=== PATIENT | female | born 1965 | race Caucasian/White ===

== ENCOUNTER 2017-05-26 08:01 | Observation (INO) | payer OTHER ==
[2017-05-26] MEDS ORDERED: ASPIRIN 81 MG PO STA (08:09)
[2017-05-26 08:22] LABS: Basophils % (A) 0 %; Eosinophils # (A) 0.1 k/uL (0-0.7); Eosinophils % (A) 1 %; HCT 39.7 % (34.0-46.0); Lymphocytes # (A) 1.1 k/uL (1.0-4.8); Lymphocytes % (A) 13 %; MCH 31.3 pg (25.0-35.0); MCHC 32.8 g/dL (31.0-37.0); MCV 95.5 fL (80.0-100.0); Mean Platelet Volume 7.3; Monocytes # (A) 0.2 k/uL (0-1.0); Monocytes % (A) 3 %; Neutrophils # (A) 6.4 k/uL (1.3-7.7); Neutrophils % (A) 82 %; Platelet Count 278 k/uL (150-450); RBC 4.16 m/uL (3.80-5.40); RDW 13.1 % (11.5-15.5); WBC 7.9 k/uL (3.8-10.6)
--- NOTE | 2017-05-26 08:24 | ED ---
Chest Pain HPI - General Chief Complaint: Chest Pain Stated Complaint: Syncope Time Seen by Provider: 05/26/17 08:01 Source: patient, EMS, RN notes reviewed Mode of arrival: EMS Limitations: no limitations - History of Present Illness Initial Comments: This is a 52-year-old female with a history of asthma who is a smoker who states she was at work this morning when she felt lightheaded dizzy and she passed out. A coworker noticed that she is going to pass out and help her to the floor. There is no trauma. She was out for a short period of time. She states she's been having intermittent heartburn discomfort this morning. She did not eat breakfast which is her normal. She does relate however that throughout the night she woke up multiple times and had multiple episodes of what she felt like was heartburn though this is worse than heartburn she's had in the past. He currently is pain-free though she did have a recent episode upon arrival. She did have some nausea vomiting she also had headache. Along with the heartburn she was having some difficulty breathing. She was brought in by EMS today EKG done by EMS showed no acute changes her blood glucose level was somewhat elevated. She didn't receive any aspirin or nitroglycerin. MD Complaint: chest pain, other - Related Data Home Medications Medication Instructions Recorded Confirmed No Known Home Medications [No 05/26/17 05/26/17 Known Home Medications] Allergies Allergy/AdvReac Type Severity Reaction Status Date / Time bee venom protein (honey bee) Allergy Anaphylaxis Verified 05/26/17 10:20 Review of Systems ROS Statement: Those systems with pertinent positive or pertinent negative responses have been documented in the HPI. ROS Other: All systems not noted in ROS Statement are negative. EKG Findings - EKG Results: EKG: interpreted by LUDIVINA, sinus rhythm (Normal sinus rhythm rate of 72. Interval 154, QRS duration 96 QT since QTC of 460/[address]-T wave changes seen.) Past Medical History Past Medical History: Syncope Additional Past Medical History / Comment(s): fibromyalgia, chronic pain, neck spurs, low back problems History of Any Multi-Drug Resistant Organisms: MRSA Date of last positivie culture/infection: 2010 MDRO Source:: groin Additional Past Surgical History / Comment(s): bowel prolapse repair, partial hysterectomy, tubal , Past Psychological History: No Psychological Hx Reported Smoking Status: Current every day smoker Past Alcohol Use History: Occasional Past Drug Use History: None Reported General Exam - General Exam Comments Initial Comments: This is a well-developed well-nourished awake alert oriented 3 female Limitations: no limitations General appearance: alert, anxious Head exam: Present: atraumatic, normocephalic, normal inspection Eye exam: Present: normal appearance, PERRL, EOMI. Absent: scleral icterus, conjunctival injection, periorbital swelling ENT exam: Present: normal exam, mucous membranes moist Neck exam: Present: normal inspection. Absent: tenderness, meningismus, lymphadenopathy Respiratory exam: Present: normal lung sounds bilaterally. Absent: respiratory distress, wheezes, rales, rhonchi, stridor Cardiovascular Exam: Present: regular rate, normal rhythm, normal heart sounds. Absent: systolic murmur, diastolic murmur, rubs, gallop, clicks GI/Abdominal exam: Present: soft, normal bowel sounds. Absent: distended, tenderness, guarding, rebound, rigid Extremities exam: Present: normal inspection, full ROM, normal capillary refill. Absent: tenderness, pedal edema, joint swelling, calf tenderness Back exam: Present: normal inspection Neurological exam: Present: alert, oriented X3, CN II-XII intact Psychiatric exam: Present: normal affect, normal mood Skin exam: Present: warm, dry, intact, normal color. Absent: rash Course Vital Signs 05/26/17 05/26/17 05/26/17 08:08 09:14 10:33 Temperature 98.1 F Pulse Rate 72 68 67 Respiratory 18 18 16 Rate Blood Pressure 155/80 147/75 149/76 O2 Sat by Pulse 99 99 98 Oximetry Chest Pain MDM - MDM Reevaluation patient reveals no further chest pain. X-rays are unremarkable. A long discussion with the patient the presentation is suspicious for angina. Patient be admitted I did discuss case with Dr. Flores. Disposition Clinical Impression: Chest pain, Unstable angina pectoris Disposition: ADMITTED IP TO THIS HOSP Condition: Stable Referrals: Jamie Pendleton MD [Primary Care Provider] - 1-2 days
[2017-05-26 08:35] LABS: D-Dimer 0.39 mg/L FEU (<0.60); Partial Thromboplastin Time 22.8 sec (22.0-30.0); Prothrombin Time 9.6 sec (9.0-12.0)
[2017-05-26 08:38] LABS: ALT 26 U/L (9-52); AST 22 U/L (14-36); Alkaline Phosphatase 81 U/L (38-126); Amylase 80 U/L (30-110); Anion Gap 9 mmol/L; Blood Urea Nitrogen 20 mg/dL (7-17); Calcium 9.3 mg/dL (8.4-10.2); Carbon Dioxide 22 mmol/L (22-30); Chloride 110 mmol/L (98-107); Glucose 106 mg/dL (74-99); Lipase 70 U/L (23-300); Magnesium 1.7 mg/dL (1.6-2.3); Sodium 141 mmol/L (137-145); Total Bilirubin 0.3 mg/dL (0.2-1.3); Total Protein 6.9 g/dL (6.3-8.2)
[2017-05-26 08:40] LABS: Potassium 3.9 mmol/L (3.5-5.1)
--- NOTE | 2017-05-26 08:41 | XR ---
EXAMINATION TYPE: XR chest 2V DATE OF EXAM: 05/26/2017 HISTORY: Weakness and shortness of breath. REFERENCE: NONE. FINDINGS: The lungs are clear. Pleural space are clear. The heart is not enlarged. IMPRESSION: NO ACTIVE INTRATHORACIC DISEASE.
[2017-05-26 08:46] LABS: Creatine Kinase 77 U/L (30-135)
[2017-05-26 08:59] LABS: Creatine Kinase MB 0.7 ng/mL (0.0-2.4); Troponin I <0.012 ng/mL (0.000-0.034)
[2017-05-26] MEDS ORDERED: NITROGLYCERIN SL TABS 0.4 MG TAB SUBLINGUAL PRN (10:50)
[2017-05-26] MEDS ORDERED: HEPARIN SODIUM,PORCINE 5,000 UNIT/ML 1 ML VIAL IV ONE (10:50)
--- NOTE | 2017-05-26 10:54 | ED ---
Medical Decision Making - Medical Decision Making We did discuss the risks of smoking and the benefits of quitting. Patient smokes about half a pack cigarettes per day. She was offered a nicotine patch she does not want one at this time she will request 1F she feels as if she is going through 15 withdrawals. Told conversation lasting 3.1 minutes - Lab Data Result diagrams: 05/26/17 08:12 05/26/17 08:12 Lab Results 05/26/17 05/26/17 05/26/17 Range/Units 08:12 08:12 08:12 WBC 7.9 (3.8-10.6) k/uL RBC 4.16 (3.80-5.40) m/uL Hgb 13.0 (11.4-16.0) gm/dL Hct 39.7 (34.0-46.0) % MCV 95.5 (80.0-100.0) fL MCH 31.3 (25.0-35.0) pg MCHC 32.8 (31.0-37.0) g/dL RDW 13.1 (11.5-15.5) % Plt Count 278 (150-450) k/uL Neutrophils % 82 % Lymphocytes % 13 % Monocytes % 3 % Eosinophils % 1 % Basophils % 0 % Neutrophils # 6.4 (1.3-7.7) k/uL Lymphocytes # 1.1 (1.0-4.8) k/uL Monocytes # 0.2 (0-1.0) k/uL Eosinophils # 0.1 (0-0.7) k/uL Basophils # 0.0 (0-0.2) k/uL PT (9.0-12.0) sec INR (<1.2) APTT (22.0-30.0) sec D-Dimer (<0.60) mg/L FEU Sodium 141 (137-145) mmol/L Potassium 3.9 (3.5-5.1) mmol/L Chloride 110 H (98-107) mmol/L Carbon Dioxide 22 (22-30) mmol/L Anion Gap 9 mmol/L BUN 20 H (7-17) mg/dL Creatinine 0.75 (0.52-1.04) mg/dL Est GFR (MDRD) Af Amer >60 (>60 ml/min/1.73 sqM) Est GFR (MDRD) Non-Af >60 (>60 ml/min/1.73 sqM) Glucose 106 H (74-99) mg/dL Calcium 9.3 (8.4-10.2) mg/dL Magnesium 1.7 (1.6-2.3) mg/dL Total Bilirubin 0.3 (0.2-1.3) mg/dL AST 22 (14-36) U/L ALT 26 (9-52) U/L Alkaline Phosphatase 81 (38-126) U/L Total Creatine Kinase 77 (30-135) U/L CK-MB (CK-2) 0.7 (0.0-2.4) ng/mL CK-MB (CK-2) Rel Index 0.9 Troponin I <0.012 (0.000-0.034) ng/mL NT-Pro-B Natriuret Pep pg/mL Total Protein 6.9 (6.3-8.2) g/dL Albumin 4.0 (3.5-5.0) g/dL Amylase 80 (30-110) U/L Lipase 70 (23-300) U/L 05/26/17 05/26/17 Range/Units 08:12 08:12 WBC (3.8-10.6) k/uL RBC (3.80-5.40) m/uL Hgb (11.4-16.0) gm/dL Hct (34.0-46.0) % MCV (80.0-100.0) fL MCH (25.0-35.0) pg MCHC (31.0-37.0) g/dL RDW (11.5-15.5) % Plt Count (150-450) k/uL Neutrophils % % Lymphocytes % % Monocytes % % Eosinophils % % Basophils % % Neutrophils # (1.3-7.7) k/uL Lymphocytes # (1.0-4.8) k/uL Monocytes # (0-1.0) k/uL Eosinophils # (0-0.7) k/uL Basophils # (0-0.2) k/uL PT 9.6 (9.0-12.0) sec INR 1.0 (<1.2) APTT 22.8 (22.0-30.0) sec D-Dimer 0.39 (<0.60) mg/L FEU Sodium (137-145) mmol/L Potassium (3.5-5.1) mmol/L Chloride (98-107) mmol/L Carbon Dioxide (22-30) mmol/L Anion Gap mmol/L BUN (7-17) mg/dL Creatinine (0.52-1.04) mg/dL Est GFR (MDRD) Af Amer (>60 ml/min/1.73 sqM) Est GFR (MDRD) Non-Af (>60 ml/min/1.73 sqM) Glucose (74-99) mg/dL Calcium (8.4-10.2) mg/dL Magnesium (1.6-2.3) mg/dL Total Bilirubin (0.2-1.3) mg/dL AST (14-36) U/L ALT (9-52) U/L Alkaline Phosphatase (38-126) U/L Total Creatine Kinase (30-135) U/L CK-MB (CK-2) (0.0-2.4) ng/mL CK-MB (CK-2) Rel Index Troponin I (0.000-0.034) ng/mL NT-Pro-B Natriuret Pep 128 pg/mL Total Protein (6.3-8.2) g/dL Albumin (3.5-5.0) g/dL Amylase (30-110) U/L Lipase (23-300) U/L Disposition Clinical Impression: Chest pain, Unstable angina pectoris Disposition: ADMITTED IP TO THIS HOSP Condition: Stable Referrals: Jaime Pendleton MD [Primary Care Provider] - 1-2 days
[2017-05-26] MEDS ORDERED: HEPARIN SOD,PORK IN 0.45% NACL 25,000 UNIT in 0.45% NACL 1 500ML.BAG IV SCH (11:00)
[2017-05-26] MEDS ORDERED: SODIUM CHLORIDE 0.9% 1,000 ML IV SCH (11:00)
[2017-05-26 13:00] VITALS: BMI 28.1
[2017-05-26] MEDS: NITROGLYCERIN OINT 1 INCH/GM PACKET TOPICAL SCH ×2 (13:01→17:56)
--- NOTE | 2017-05-26 14:14 | P.HPIM ---
History of Present Illness 52-year-old female came in with compensative chest been restarted yesterday like an acid reflux and patient was comparing of lightheadedness and dizzy patient throughout today was nauseous yesterday patient denied and diaphoresis patient has moderate chest pain nonradiating patient's EKG is essentially within normal lives patient chest pain is nonpruritic and d-dimer is negative. Patient woke up with heartburn symptoms. Patient still has her gallbladder. Troponin is negative EKG showed sinus rhythm without any acute ST-T wave changes patient is complaining of headache now secondary to Nitropaste which is being discontinued. Review of Systems REVIEW OF SYSTEMS: CONSTITUTIONAL: No fever, no malaise, no fatigue. HEENT: No recent visual problems or hearing problems. Denied any sore throat. CARDIOVASCULAR: No orthopnea, PND, no palpitations, no syncope. PULMONARY: No shortness of breath, no cough, no hemoptysis. GASTROINTESTINAL: No diarrhea, no nausea, no vomiting, no abdominal pain. Normoactive bowel sounds. NEUROLOGICAL: No headaches, no weakness, no numbness. HEMATOLOGICAL: Denies any bleeding or petechiae. GENITOURINARY: Denies any burning micturition, frequency, or urgency. MUSCULOSKELETAL/RHEUMATOLOGICAL: Denies any joint pain, swelling, or any muscle pain. ENDOCRINE: Denies any polyuria or polydipsia. The rest of the 14-point review of systems is negative. Past Medical History Past Medical History: Syncope Additional Past Medical History / Comment(s): fibromyalgia, chronic pain, neck spurs, low back problems History of Any Multi-Drug Resistant Organisms: MRSA Date of last positivie culture/infection: 2010 MDRO Source:: groin Additional Past Surgical History / Comment(s): bowel prolapse repair, partial hysterectomy, tubal , kidney surgery to remove stones. Past Anesthesia/Blood Transfusion Reactions: No Reported Reaction Past Psychological History: No Psychological Hx Reported Smoking Status: Current every day smoker Past Alcohol Use History: Occasional Past Drug Use History: None Reported - Past Family History Father Additional Family Medical History / Comment(s): heart blockage, Prostate CA Mother Family Medical History: Cancer Additional Family Medical History / Comment(s): lung CA Medications and Allergies Home Medications Medication Instructions Recorded Confirmed Type Ibuprofen [Motrin] 1,000 mg PO BID 05/26/17 05/26/17 History Allergies Allergy/AdvReac Type Severity Reaction Status Date / Time bee venom protein (honey bee) Allergy Anaphylaxis Verified 05/26/17 10:20 Physical Exam Vitals: Vital Signs Temp Pulse Pulse Resp BP BP Pulse Ox 05/26/17 12:29 69 16 126/66 99 05/26/17 12:00 97.9 F 60 16 133/70 99 05/26/17 10:33 67 16 149/76 98 05/26/17 09:14 68 18 147/75 99 05/26/17 08:08 98.1 F 72 18 155/80 99 Intake and Output 05/25/17 05/26/17 05/26/17 22:59 06:59 14:59 Other: Weight 83.915 kg Patient Weight 05/27/17 06:59 Weight 83.915 kg PHYSICAL EXAMINATION: GENERAL: The patient is alert and oriented x3, not in any acute distress. Well developed, well nourished. HEENT: Pupils are round and equally reacting to light. EOMI. No scleral icterus. No conjunctival pallor. Normocephalic, atraumatic. No pharyngeal erythema. No thyromegaly. CARDIOVASCULAR: S1 and S2 present. No murmurs, rubs, or gallops. PULMONARY: Chest is clear to auscultation, no wheezing or crackles. ABDOMEN: Soft, nontender, nondistended, normoactive bowel sounds. No palpable organomegaly. MUSCULOSKELETAL: No joint swelling or deformity. EXTREMITIES: No cyanosis, clubbing, or pedal edema. NEUROLOGICAL: Gross neurological examination did not reveal any focal deficits. SKIN: No rashes. Results CBC & Chem 7: 05/26/17 08:12 05/26/17 08:12 Labs: Abnormal Lab Results - Last 24 Hours (Table) 05/26/17 Range/Units 08:12 Chloride 110 H (98-107) mmol/L BUN 20 H (7-17) mg/dL Glucose 106 H (74-99) mg/dL Thrombosis Risk Factor Assmnt - Choose All That Apply Any of the Below Risk Factors Present?: Yes Each Factor Represents 1 point: Age 41-60 years, Obesity (BMI >25) Thrombosis Risk Factor Assessment Total Risk Factor Score: 2 Thrombosis Risk Factor Assessment Level: Low Risk Assessment and Plan Plan: -Chest pain: Rule out acute concurrent syndromes and unstable angina cardiology will let valid the patient and the patient most probably has either gastritis or cholelithiasis rule out cholecystitis will obtain ultrasound of the liver and gallbladder and patient was started on Protonix twice a day. -History of chronic pain syndrome: Patient on ibuprofen for that which will be held and patient does take this medication on regular basis will use [facility] [place] instead we're holding ibuprofen because of possibility of gastritis or gastroesophageal reflux disease contributing to her symptoms.
[2017-05-26] MEDS: HYDROcodone/APAP 5-325MG 1 EACH TAB PO PRN ×2 (14:16→18:56)
[2017-05-26] MEDS: PANTOPRAZOLE 40 MG/10 ML VIAL IVP SCH ×2 (14:55→21:01)
[2017-05-26 15:46] LABS: Creatine Kinase 69 U/L (30-135)
[2017-05-26 15:59] LABS: Creatine Kinase MB 0.6 ng/mL (0.0-2.4); Troponin I <0.012 ng/mL (0.000-0.034)
[2017-05-26 20:09] LABS: Creatine Kinase 68 U/L (30-135)
[2017-05-26 20:19] LABS: Creatine Kinase MB 0.7 ng/mL (0.0-2.4); Troponin I <0.012 ng/mL (0.000-0.034)
--- NOTE | 2017-05-26 20:36 | CONS ---
CONSULTATION Mrs. Roman is 52-year-old female who has not seen a physician in many years, who presented with symptoms of chest discomfort. She has been having discomfort on and off during last night, woke up from sleep, associated with some dyspnea and dizziness. The patient is active physically, has no exertional chest discomfort. She has no significant dyspnea. She has no dizziness, palpitation, or syncope. No PND, orthopnea, or peripheral edema. She has no prior documented history of cardiac disease. Her coronary risk factors are remarkable for smoking. She has no documented hypertension, hyperlipidemia, or diabetes mellitus. MEDICATION: Her medications at home include ibuprofen on a p.r.n. basis. REVIEW OF SYSTEMS: RESPIRATORY system: She has remote history of asthma. She has cough and dyspnea on exertion. GI system: No recent GI bleeding. No peptic ulcer disease. system: No dysuria or hematuria. Nervous system: No stroke or seizure. PHYSICAL EXAMINATION: She is a 52-year-old female, alert, oriented, in no apparent distress. Blood pressure 118/70 with a heart rate in the 50s. HEAD: Normocephalic. Eyes sclerae anicteric. Neck: Good carotid upstroke. No bruit. No jugular venous distention. LUNGS: Clear to auscultation. Heart regular rate and rhythm S1, S2. No S3. No rub. ABDOMEN: Soft, nontender. Positive bowel sounds no megaly. EXTREMITIES: No edema. Intact distal pulses. LAB DATA: EKG sinus mechanism, rate of 72, normal axis and intervals. Normal electrocardiogram. Troponin less than 0.012 for 2 samples. BUN and creatinine 20 and 0.75, hemoglobin is 13. IMPRESSION: 1. Chest discomfort, atypical for ischemic heart disease probably, noncardiac. 2. History of chronic tobacco use. RECOMMENDATION: From the cardiac standpoint, I will continue present therapy. I do not see any evidence of active cardiac disease. As an outpatient the patient may benefit form a cardiac workup. I would expect if the rest of her enzymes are negative, that she should be able to be discharged home tomorrow. Thank you for this consult. We will follow with you. MMODL / IJN: [id number] /
[2017-05-27 04:00] LABS: Cholesterol 150 mg/dL (<200); HDL Cholesterol 65 mg/dL (40-60); LDL Cholesterol,Calculated 73 mg/dL (0-99); Triglycerides 60 mg/dL (<150)
[2017-05-27] MEDS: NITROGLYCERIN OINT 1 INCH/GM PACKET TOPICAL SCH (04:53)
[2017-05-27] MEDS: HYDROcodone/APAP 5-325MG 1 EACH TAB PO PRN (04:54)
[2017-05-27 08:04] VITALS: BP 103/57; PULSE 53; RESP 16; TEMP 98.4
--- NOTE | 2017-05-27 08:31 | US ---
EXAMINATION TYPE: US gallbladder DATE OF EXAM: 05/27/2017 COMPARISON: NONE CLINICAL HISTORY: Abdominal pain. Epigastric and chest pain, N/V EXAM MEASUREMENTS: Liver Length: 14.6 cm Gallbladder Wall: 0.2 cm CBD: 0.4 cm Right Kidney: 11.1 x 5.0 x 4.6 cm Pancreas: visualized portions wnl, tail limited by overlying midline bowel gas Liver: wnl Gallbladder: wnl Evidence for sonographic Hale's sign: yes CBD: visualized portions wnl, limited at panc head by overlying midline bowel gas Right Kidney: wnl The pancreas is unremarkable. The liver is normal in size without evidence of biliary dilatation. The gallbladder is normal. The gallbladder wall measures 2 mm. The distal common hepatic duct measure s 4 mm. There is right upper quadrant tenderness. The right kidney is unremarkable. Limited views of the IVC are normal. IMPRESSION: 1. NORMAL ULTRASOUND OF THE RIGHT UPPER QUADRANT. 2. SLIGHT UPPER QUADRANT TENDERNESS.
[2017-05-27] MEDS ORDERED: ASPIRIN 325 MG TAB PO SCH (09:00)
[2017-05-27] MEDS: PANTOPRAZOLE 40 MG/10 ML VIAL IVP SCH (09:20)
--- NOTE | 2017-05-27 10:34 | P.DS ---
Providers Date of admission: 05/26/17 10:51 Attending physician: Giancarlo Flores Consults: 05/26/17 10:51 Consult Physician Urgent Consulting Provider: Fernando Madrid Consult Reason/Comments: Chest pain Do you want consulting provider notified?: Yes Primary care physician: Keerthi Sandoval [facility] Course: Patient is admitted with chest pain rule out acute coronary syndromes acute coronary syndromes at ruled out patient has normal sinus rhythm on the EKG and patient's troponins are negative patient will undergo stress test as an outpatient patient chest pain is probably related to gastritis and patient was advised to avoid the ibuprofen and patient will be given prescription for Prilosec and patient will follow with PCP as an outpatient in 3-7 days. Cardiology evaluated the patient. PHYSICAL EXAMINATION: GENERAL: The patient is alert and oriented x3, not in any acute distress. Well developed, well nourished. HEENT: Pupils are round and equally reacting to light. EOMI. No scleral icterus. No conjunctival pallor. Normocephalic, atraumatic. No pharyngeal erythema. No thyromegaly. CARDIOVASCULAR: S1 and S2 present. No murmurs, rubs, or gallops. PULMONARY: Chest is clear to auscultation, no wheezing or crackles. ABDOMEN: Soft, nontender, nondistended, normoactive bowel sounds. No palpable organomegaly. MUSCULOSKELETAL: No joint swelling or deformity. EXTREMITIES: No cyanosis, clubbing, or pedal edema. NEUROLOGICAL: Gross neurological examination did not reveal any focal deficits. SKIN: No rashes. Patient Condition at Discharge: Stable Plan - Discharge Summary Discharge Rx Participant: Yes New Discharge Prescriptions: New Omeprazole [PriLOSEC] 40 mg PO AC-BRKFST #14 capsule. Discontinued Ibuprofen [Motrin] 1,000 mg PO BID Discharge Medication List Omeprazole [PriLOSEC] 40 mg PO AC-BRKFST #14 capsule. 05/27/17 [Rx] Follow up Appointment(s)/Referral(s): Jaime Pendleton MD [Primary Care Provider] - 1-2 days Activity/Diet/Wound Care/Special Instructions: pt to have outpatient stress test done Discharge Disposition: HOME SELF-CARE
--- NOTE | 2017-05-27 10:43 | PN ---
PROGRESS NOTE Mrs. Roman is 52-year-old female who presented with symptoms of chest discomfort that has some atypical features for ischemic heart disease. She is doing well this morning. Her breathing has been stable. She denies any chest pain. No dizziness. No palpitation. She denies any nausea. She underwent ultrasound of right upper quadrant that was unremarkable. She continued to be on aspirin, nitro paste, and Protonix. PHYSICAL EXAMINATION: Blood pressure 103/60 with a heart rate in 50s. LUNGS: Clear. Heart regular rate and rhythm S1, S2. No S3. No rub. ABDOMEN: Soft, nontender. EXTREMITIES: No edema. LAB DATA: Total cholesterol is 150, LDL of 73. IMPRESSION: 1. Chest discomfort, atypical for ischemic heart disease. 2. History of smoking. RECOMMENDATION: From the cardiac standpoint, I would stop her nitrates. She should be able to be discharged home and undergo a pharmacological nuclear scan as an outpatient because of her back pain and inability to walk on the treadmill. Depending on the results of testing, further recommendations will be made. I discussed those findings with Dr. Vieira. MMGURWINDERL / IJN: [id number] /
[2017-05-28] MEDS ORDERED: ASPIRIN 81 MG PO SCH (09:00)
== END 2017-05-27 11:53 | disposition home or self-care (01) ==
LOC: EC 08:01 → 3SUR 10:51
PROVIDERS: ADMIT Internal Medicine; ATTEND Internal Medicine
DX: R07.89 Other chest pain (principal); R55 Syncope and collapse; F17.210 Nicotine dependence, cigarettes, uncomplicated; J45.909 Unspecified asthma, uncomplicated; R11.2 Nausea with vomiting, unspecified; R51 Headache; M79.7 Fibromyalgia; G89.4 Chronic pain syndrome; M54.5 Low back pain; Z91.030 Bee allergy status; Z86.14 Personal history of Methicillin resistant Staphylococcus aureus infection; Z90.710 Acquired absence of both cervix and uterus; Z82.49 Family history of ischemic heart disease and other diseases of the circulatory system
CPT/HCPCS: 96376 ×3; 96366 ×2; 96375; 96365; 99285; 36415; 93005 ×2; 85379; 83880; 80061; 80053; 82150; 82550; 82553; 83690; 83735; 84484; 85025; 85610; 85730 ×2; 71046; 76705; G0378 ×2; J1644 ×2; C9113 ×2

== ENCOUNTER → 2017-05-30 | Outpatient (CLI) | payer OTHER ==
[~2017-05-30] MED LIST: REGADENOSON 0.4 MG/5 ML SYRINGE IV ONE
--- NOTE | 2017-05-30 10:49 | EST ---
EXERCISE STRESS AGE: 52 SEX: F HT: 5'8" WT: 185 PROTOCOL: Lexiscan Cardiolite Stress Test HEART RATE REST: 52 BLOOD PRESSURE REST: 128/82 MAXIMUM HEART RATE ACHIEVED: 94 MAXIMUM BLOOD PRESSURE: 128/59 85% MPHR: 141 100% MPHR: 166 INDICATIONS: Chest pain. CLINICAL INFORMATION: Baseline EKG shows sinus rhythm, normal axis, normal intervals. Patient was given intravenous Lexiscan as per protocol. Did not have chest pain or diagnostic ST-segment depression. CONCLUSION: 1. Negative stress test by EKG criteria. 2. Cardiolite portion of the stress test was reported separately. MMODL / IJN: [id number] /
--- NOTE | 2017-05-30 15:21 | NM ---
"EXAMINATION TYPE: NM stress lexiscan cardiolite DATE OF EXAM: 05/30/2017 COMPARISON: NONE HISTORY: Chest pain, R07.9 TECHNIQUE: After the intravenous administration of 9.7 mCi Tc 99m Sestamibi - Cardiolite resting SPE CT images acquired 45 minutes post injection. The patient received 0.4mg Lexiscan, 28 mCi Tc 99m Sestamibi - Stress images obtained 30 minutes post injection FINDINGS: Review of stress and rest SPECT images demonstrates anterior left ventricular wall and apical perfusi on abnormality on stress as compared to rest images. Gated analysis shows inferior apical paradoxica l wall motion on gated rest images which may be artifactual with an estimated left ventricular ejecti on fraction of 45 %. IMPRESSION: Findings suggest pharmacologically induced left ventricular myocardial ischemia. Consider echocardiog raphic correlation for wall motion abnormality A Yellow message has been communicated to Eva Vieira MD via the [employer] | Critical Re sult system on 05/30/2017 3:18 PM, Message ID [id number]."
== END | disposition home or self-care (01) ==
LOC: RADNMMAIN 08:17
PROVIDERS: ATTEND Internal Medicine
DX: R07.9 Chest pain, unspecified (principal)
CPT/HCPCS: 93017; 78452; A9500; J2785

== ENCOUNTER → 2017-06-04 | Outpatient (CLI) | payer OTHER ==
[2017-06-04 11:17] LABS: HGB 13.4 gm/dL (11.4-16.0); MCH 31.5 pg (25.0-35.0); MCV 98.4 fL (80.0-100.0); Mean Platelet Volume 7.3; Platelet Count 276 k/uL (150-450); RBC 4.26 m/uL (3.80-5.40); RDW 13.2 % (11.5-15.5); WBC 7.4 k/uL (3.8-10.6)
[2017-06-04 11:28] LABS: Anion Gap 8 mmol/L; Blood Urea Nitrogen 14 mg/dL (7-17); Carbon Dioxide 29 mmol/L (22-30); Chloride 105 mmol/L (98-107); Potassium 4.4 mmol/L (3.5-5.1); Sodium 142 mmol/L (137-145)
== END | disposition home or self-care (01) ==
LOC: LABPAT 10:54
PROVIDERS: ATTEND Internal Medicine Interventional Cardiology
DX: Z01.818 Encounter for other preprocedural examination (principal); R07.9 Chest pain, unspecified
CPT/HCPCS: 36415; 80051; 82565; 84520; 85027

== ENCOUNTER → 2017-06-05 | Day surgery (SDC) | payer OTHER ==
[2017-06-04 08:21] VITALS: BMI 28.1
[~2017-06-05] MED LIST changes: +ACETAMINOPHEN TAB 325 MG TAB ONE; +ACETAMINOPHEN TAB 325 MG TAB PO PRN; +ALPRAZolam 0.25 MG TAB PO PRN; +ALPRAZolam 0.5 MG TAB PO PRN; +ASPIRIN 325 MG TAB PO STA; +ASPIRIN 81 MG PO SCH; +ATORVASTATIN 80 MG TAB PO STA; +HEPARIN SODIUM 1,000 UN/ML (10ML VL) ONE; +IOHEXOL 350 MG/ML 125ML BOTTLE INJ ONE; +LIDOCAINE 2% INJ 20 MG/ML (20 ML MDV) ONE; +LIDOCAINE 2% INJ 20 MG/ML SQ ONE; +MECLIZINE 12.5 MG TAB PO PRN; +MIDAZOLAM 2 MG/2 ML VIAL ONE; +NITROGLYCERIN SL TABS 0.4 MG TAB SUBLINGUAL PRN; -REGADENOSON 0.4 MG/5 ML SYRINGE IV ONE; +RX INFO: IV CONTRAST WAS GIVEN 1 EACH MISC MISCELLANE PRN; +SODIUM CHLORIDE 0.9% 1,000 ML IV SCH; +SODIUM CHLORIDE 0.9% 1,000 ML in EMPTY BAG 1 BAG IV ONE; +VERAPAMIL 2.5 MG/ML 2 ML AMP ONE; +VERAPAMIL SYRINGE (5 MG/10 ML) INTRAARTER ONE; +fentaNYL (PF) 50 MCG/ML 2 ML AMP IV ONE; +fentaNYL (PF) 50 MCG/ML 2 ML AMP ONE
[2017-06-05 07:03] VITALS: RESP 18
[2017-06-05] MEDS: MIDAZOLAM 2 MG/2 ML VIAL IV ONE ×2 (07:40→07:43)
[2017-06-05 08:17] VITALS: TEMP 98.2
--- NOTE | 2017-06-05 11:28 | CC ---
CARDIAC CATHETERIZATION REPORT Mrs. Roman is a 52-year-old female with chronic tobacco use, who presented to the hospital with symptoms of chest discomfort and no evidence of acute troponin or EKG changes. She subsequently underwent a myocardial perfusion imaging as an outpatient that revealed evidence of inducible ischemia involving the anterolateral wall. The patient continued to complain of discomfort in the chest, dyspnea as well as dizziness. In view of that, recommendation made regarding cardiac catheterization. The procedures, risks and complications were discussed with the patient who is in full understanding and agreement. PROCEDURE: Patient was brought to clinical laboratory technician in a fasting semi-sedated state after receiving fentanyl and Benadryl and achieving moderate conscious sedated state. Using Xylocaine anesthesia and Seldinger technique, a 6-Lao sheath was introduced in the right radial artery. Selective right and left coronary angiography was performed using 5- Lao 3 and half bend right and left Demetria catheter. Multiple views of the right coronary artery including hemiaxial views were obtained. Following that a 5-Lao type pigtail catheter was introduced in the left ventricle and a 30 degree DU view of the left ventricle was obtained. Following that, the catheter and sheaths were removed. Hemostasis was obtained with deployment of a TR band. There was no immediate complication. Patient was returned to her room in stable condition. FINDINGS: 1. Left main: This is a large-sized vessel bifurcating into left circumflex, left anterior descending artery, left main coronary artery is without any evidence of high-grade stenosis. 2. Left anterior descending artery: This is a large-sized vessel reaching towards the apex with a wraparound the apex segment giving rise to 2 diagonal branches. The left anterior descending artery as well as branches have no evidence of obstructive coronary artery disease. 3. Left circumflex: This is a nondominant vessel giving rise to a moderately size obtuse marginal branch. The left circumflex as well as branches have no evidence of obstructive coronary artery disease. 4. Right coronary artery: This is a large dominant vessel bifurcating distally into PDA and posterolateral segment and branches. The right coronary artery as well as branches have no evidence of obstructive coronary artery disease. 5. LEFT VENTRICULOGRAM: Left ventriculogram was performed in 30 degree DU view and revealed normal left ventricular size systolic function. Ejection fraction 55%. There was no significant mitral regurgitation. 6. HEMODYNAMICS: There was no gradient across the aortic valve. The left ventricular end-diastolic pressure was 12 mmHg. CONCLUSION: 1. Normal coronary arteries. 2. Normal left ventricular size and systolic function. RECOMMENDATIONS: In view of findings and anatomy, I have recommend continued medical therapy with aggressive coronary risk factor modifications that has been initiated. Those findings and recommendations were discussed with the patient and her family who are in full understanding and agreement. DURATION OF PROCEDURE: 19 minutes. EMERY / SHYANNE: [id number] /
--- NOTE | 2017-06-05 11:34 | LTR ---
DATE OF SERVICE: 06/05/[address] Pendleton: I had the pleasure of performing cardiac catheterization on Mrs. Roman at [facility] on June 05 and a fully copy of procedure note will be forwarded to you. In brief, she was found to have no evidence of obstructive disease with preserved left ventricular size and systolic function. Based on those findings, I have recommended continued medical therapy with aggressive coronary risk factor modifications that has been initiated. Thank you again for allowing me to participate in her care. Please feel free to call for any questions. Sincerely, EMERY / ZEESHANN: [id number] /
[2017-06-05 12:59] VITALS: BP 130/82; PULSE 62
== END | disposition home or self-care (01) ==
LOC: CATHCVL 06:36
PROVIDERS: ATTEND Internal Medicine Interventional Cardiology
DX: R07.9 Chest pain, unspecified (principal); R94.39 Abnormal result of other cardiovascular function study; Z82.49 Family history of ischemic heart disease and other diseases of the circulatory system; F17.210 Nicotine dependence, cigarettes, uncomplicated; Z79.82 Long term (current) use of aspirin; Z88.1 Allergy status to other antibiotic agents; Z88.5 Allergy status to narcotic agent
CPT/HCPCS: 93458; C1894; C1769; J2001; J2250; J3010; J1644; Q9967

== ENCOUNTER → 2017-06-12 | Outpatient (CLI) | payer OTHER ==
--- NOTE | 2017-06-12 08:02 | CT ---
EXAMINATION TYPE: CT brain w con DATE OF EXAM: 06/12/2017 COMPARISON: NONE HISTORY: Syncope CT DLP: 943.80 mGycm Automated Exposure Control for Dose Reduction was Utilized. TECHNIQUE: CT scan of the head is performed with IV contrast.,CT scan of the head is performed withou t and with with IV Contrast, patient injected with 100 ml mL of Omnipaque 300. FINDINGS: Noncontrast images show no extra-axial fluid collection or midline shift. The ventricles and sulci are within normal limits in size. Postcontrast images show no suspicious enhancing intrapar enchymal mass. Patchy areas of hypoattenuation are seen within the periventricular and subcortical w cam matter, right hemisphere greater than left. No vasogenic edema. The globes are intact and the vi sualized sinuses are clear. Incidentally noted left-sided davey bullosa. Evaluation for subarachnoid hemorrhage is somewhat limited as there are no precontrast images. IMPRESSION: 1. No evidence for abnormal intracranial enhancement, mass effect, or midline shift. MRI could be per formed if there is further clinical concern. 2. Few foci of nonspecific white matter change, most commonly on the basis of chronic microangiopathy .
== END | disposition home or self-care (01) ==
LOC: RADCTMAIN 07:14
PROVIDERS: ATTEND Internal Medicine
DX: R55 Syncope and collapse (principal)
CPT/HCPCS: 70460; Q9967

== ENCOUNTER → 2017-08-15 | Outpatient (CLI) | payer OTHER ==
--- NOTE | 2017-08-15 17:46 | US ---
EXAMINATION TYPE: US carotid duplex BILAT DATE OF EXAM: 08/15/2017 COMPARISON: NONE CLINICAL HISTORY: 52-year-old female R55 Vasovagal Syncope. TECHNIQUE: Carotid duplex ultrasound examination. In direct Doppler criteria was utilized. FINDINGS: EXAM MEASUREMENTS: RIGHT: Peak Systolic Velocity (PSV) cm/sec ----- Right CCA: 116.0 ----- Right ICA: 102.9 ----- Right ECA: 82.0 ICA/CCA ratio: 0.9 RIGHT: End Diastole cm/sec ----- Right CCA: 39.6 ----- Right ICA: 39.1 ----- Right ECA: 19.3 LEFT: Peak Systolic Velocity (PSV) cm/sec ----- Left CCA: 109.2 ----- Left ICA: 94.0 ----- Left ECA: 87.5 ICA/CCA ratio: 0.9 LEFT: End Diastole cm/sec ----- Left CCA: 44.4 ----- Left ICA: 48.7 ----- Left ECA: 14.9 VERTEBRALS (direction of flow): Right Vertebral: Antegrade Left Vertebral: Antegrade Rhythm: Normal Eyeglass Maker notes: No significant stenosis seen bilaterally/ Incidental bilateral thyroid nodules >1 cm in size. Nodules measure 1.4 x 0.8 cm on the right and is mixed solid cystic, primarily solid. On the left, no dule measures 1.8 cm and is mixed solid cystic with a prominent solid component. IMPRESSION: 1. No hemodynamically significant stenosis appreciated in either internal carotid artery. 2. Bilateral thyroid nodules. Largest nodule seen on this exam measures 1.8 cm. Dedicated thyroid ult rasound can survey the entire gland. Criteria for Assigning % of Stenosis / Diameter reduction (Estimation based on the indirect measurements of the internal carotid artery velocities (ICA PSV). 1. Normal (no stenosis)=ICA PSV < 125 cm/s: ratio < 2.0: ICA EDV<40 cm/s. 2. Less than 50% stenosis=ICA PSV < 125 cm/s: ratio < 2.0: ICA EDV<40 cm/s. 3. 50 to 69% stenosis=ICA PSV of 125 to 230 cm/s: ration 2.0 ? 4.0: ICA EDV 40-100 cm/s. 4. Greater than 70% stenosis to near occlusion= ICA PSV > 230 cm/s: ratio > 4.0: ICA EDV > 100 cm/s. 5. Near occlusion= ICA PSV velocities may be low or undetectable: variable ratio and ICA EDV. 6. Total occlusion=unable to detect flow.
== END | disposition home or self-care (01) ==
LOC: RADUSWWP 16:50
PROVIDERS: ATTEND Psychiatry & Neurology Neurology
DX: R55 Syncope and collapse (principal)
CPT/HCPCS: 93880

== ENCOUNTER → 2017-08-22 | Outpatient (CLI) | payer OTHER ==
--- NOTE | 2017-08-23 10:22 | NM ---
EXAMINATION TYPE: NM thyroid image w uptake DATE OF EXAM: 08/23/2017 COMPARISON: NONE HISTORY: Swelling or lump in neck TECHNIQUE: Thyroid iodine uptake is calculated and images performed after the oral administration of 342 uCi 1-123 Capsule. FINDINGS: There is heterogeneous distribution of activity throughout the gland. The 4 hour iodine up take is calculated at 8% (normal range 8-14%). The 24-hour iodine uptake is calculated at 21.5% (norm al range 15-35%). IMPRESSION: Heterogeneous distribution of radiotracer throughout the thyroid. Recommend correlation w ith ultrasound to assess for nodules. 24-hour uptake is within normal limits, however, the 4 hour uptake is borderline hypothyroidism. Lamberto elate clinically..
== END | disposition home or self-care (01) ==
LOC: RADNMMAIN 08:45
PROVIDERS: ATTEND Internal Medicine
DX: E04.2 Nontoxic multinodular goiter (principal); R22.0 Localized swelling, mass and lump, head; Z88.5 Allergy status to narcotic agent; Z88.1 Allergy status to other antibiotic agents
CPT/HCPCS: 78014; A9516

== ENCOUNTER → 2017-08-27 | Outpatient (CLI) | payer OTHER ==
--- NOTE | 2017-08-27 18:14 | MR ---
PRE AND POSTCONTRAST ENHANCED MRI OF THE BRAIN: CLINICAL HISTORY: R55 Vasovagal syncope CONTRAST: 9 ml Gadavist COMPARISON: CT brain dated 06/12/2017 Multiplanar and multispin-echo imaging of the brain was performed both before and after the administr ation of contrast. The ventricles, basal cisterns and sulci overlying the cerebral convexities are within normal limits. There is no evidence for midline shift or mass effect. Acute intracranial hemorrhage or extra-axial collection is not evident. There are no abnormal areas of increased or decreased signal intensity within the brain parenchyma. Following contrast administration, there is no evidence for pathologic enhancement or enhancing mass. The paranasal sinuses are well-aerated. Fluid within the right mastoid air cells likely related to ch ronic mastoiditis. IMPRESSION: 1. No acute intracranial process or enhancing lesion. 2. Changes of chronic right-sided mastoiditis.
== END | disposition home or self-care (01) ==
LOC: RADMRIMAIN 17:14
PROVIDERS: ATTEND Psychiatry & Neurology Neurology
DX: R55 Syncope and collapse (principal)
CPT/HCPCS: 70553; A9581

== ENCOUNTER → 2017-09-26 | Outpatient (CLI) | payer OTHER ==
--- NOTE | 2017-09-26 08:47 | US ---
EXAMINATION TYPE: US thyroid st tissue head/neck DATE OF EXAM: 09/26/2017 COMPARISON: Carotid ultrasound 11/17/2017 CLINICAL HISTORY: 52-year-old female R22.0 SWELLING/MASS. Nodules TECHNIQUE: Multiple sonographic images of the thyroid gland are obtained. FINDINGS: GLAND SIZE: Right Lobe: 4.6 x 1.6 x 1.7 cm Overall Parenchyma: homogenous Left Lobe: 5.2 x 1.3 x 1.2 cm Overall Parenchyma: homogeneous Isthmus Thickness: 0.4 cm NODULES RIGHT: # of nodules measured on right: 2 1. 1.2 X 0.8 x 0.9 cm mixed nodule at the mid pole with well-defined margins; This nodule is wider than tall and shows intranodular vascularity. Prior size: 1.4 x 0.8 cm on carotid scan 2. 1.1 X 0.5 x 0.8 cm mixed nodule at the upper pole with well-defined margins; This nodule is wider than tall and shows intranodular vascularity. Other sub-centimeter 3 mm and smaller nodules seen LEFT: # of nodules measured on left: 1 1. 1.7 X 0.9 x 1.2 cm hypoechoic mixed nodule at the mid pole with well-defined margins; This nodul e is wider than tall and shows intranodular vascularity. Prior size: 1.8 cm on carotid scan Other sub-centimeter (0.5 cm in size) nodules seen Bilateral neck scanned, no evidence of lymphadenopathy. Nodules bilaterally IMPRESSION: 2 mixed solid cystic nodules on the right measuring up to 1.2 cm and one on the left measuring 1.7 cm . Consider follow-up.
--- NOTE | 2017-09-26 08:56 | US ---
EXAMINATION TYPE: US extremity right knee DATE OF EXAM: 09/26/2017 COMPARISON: NONE CLINICAL HISTORY: 52-year-old female M71.21 CYST RT POPITEAL SPACE. Patient states right knee pain an d palpable lump right posterior knee Technique: Targeted sonographic examination along the patient's palpable site posterior right knee. FINDINGS: There is a moderate-sized Leonardo's cyst measuring 5.9 x 2.0 x 4.6 cm on the right. There is mild inter nal complexity noted. IMPRESSION: Moderate-sized 6 cm Leonardo's cyst.
== END | disposition home or self-care (01) ==
LOC: RADUSWWP 06:53
PROVIDERS: ATTEND Internal Medicine
DX: M71.21 Synovial cyst of popliteal space [Baker], right knee (principal); E04.2 Nontoxic multinodular goiter
CPT/HCPCS: 76536

== ENCOUNTER → 2017-12-17 | Outpatient (CLI) | payer OTHER ==
--- NOTE | 2017-12-17 19:48 | MR ---
EXAMINATION TYPE: MR tspine/lspine wo con DATE OF EXAM: 12/17/2017 COMPARISON: None HISTORY: Mid and low back pain, numbness TECHNIQUE: Multiplanar, multisequence imaging of the lumbar and thoracic spine is performed without I V contrast. FINDINGS: Thoracic spine MRI: Thoracic vertebral bodies show preserved height and alignment, bone marrow signal. There is no eviden t spinal stenosis, foraminal encroachment. Mild multilevel facet arthropathy noted at the lower level s of the lumbar spine. Thoracic cord signal is normal. Small posterior disc bulge at T6-7 causes minimal anterior mass effec t on the thecal sac. Loss of disc signal and height at the midthoracic levels is mild. There is spond ylosis with endplate discogenic marrow signal change additionally. IMPRESSION: Mild degenerative disc disease Lumbar spine MRI: Sagittal images of the lumbar spine show vertebral body heights and alignment to appear satisfactory. The intervertebral discs demonstrate loss of height and signal especially at L3-4, L5-S1 with associ ated vacuum phenomenon, endplate discogenic marrow signal change, there is multilevel spondylosis. T he conus medullaris is normal in position and signal. Circumaortic renal vein is noted on the left. L5-S1 shows posterior extension of endplate disc complex causing anterior mass effect on the thecal s ac which is mild, only minimal spinal stenosis, lateral extension of endplate disc complex causes for aminal encroachment bilaterally. There is facet arthropathy. L4-5 shows posterior extension endplate disc complex causing anterior mass effect on the thecal sac, lateral extension causes bilateral foraminal encroachment. On mild spinal stenosis. Facet arthropathy is present. L3-4: Posterior extension of endplate disc complex results in moderate central canal stenosis, circum ferential extension endplate disc complex encroaches somewhat on the foramina. There is facet arthrop athy encroaching mildly on the lateral recesses. L2-3: There is facet arthropathy. No significant central stenosis, disc herniation, or foraminal encr oachment. L1-2: Unremarkable. IMPRESSION: Degenerative disc disease, multilevel foraminal encroachment, spinal stenosis greatest at L3-4. Additional findings above.
== END ==
LOC: RADMRIMAIN 18:16
PROVIDERS: ATTEND Internal Medicine
DX: M51.34 Other intervertebral disc degeneration, thoracic region (principal); M51.36 Other intervertebral disc degeneration, lumbar region; M48.061 Spinal stenosis, lumbar region without neurogenic claudication
CPT/HCPCS: 72146; 72148

== ENCOUNTER → 2018-02-07 | Outpatient (CLI) | payer OTHER ==
[2018-02-07 14:56] LABS: Basophils % (A) 0 %; Eosinophils # (A) 0.1 k/uL (0-0.7); Eosinophils % (A) 2 %; HCT 40.9 % (34.0-46.0); HGB 13.5 gm/dL (11.4-16.0); Lymphocytes # (A) 2.7 k/uL (1.0-4.8); Lymphocytes % (A) 36 %; MCH 32.9 pg (25.0-35.0); MCHC 33.1 g/dL (31.0-37.0); MCV 99.5 fL (80.0-100.0); Mean Platelet Volume 6.8; Monocytes # (A) 0.4 k/uL (0-1.0); Monocytes % (A) 5 %; Neutrophils # (A) 4.2 k/uL (1.3-7.7); Neutrophils % (A) 56 %; Platelet Count 270 k/uL (150-450); RBC 4.11 m/uL (3.80-5.40); WBC 7.6 k/uL (3.8-10.6)
[2018-02-07 15:13] LABS: ALT 23 U/L (9-52); AST 16 U/L (14-36); Alkaline Phosphatase 82 U/L (38-126); Anion Gap 6 mmol/L; Blood Urea Nitrogen 18 mg/dL (7-17); C Reactive Protein 5.5 mg/L (<10.0); Calcium 9.6 mg/dL (8.4-10.2); Carbon Dioxide 26 mmol/L (22-30); Chloride 107 mmol/L (98-107); Creatine Kinase 27 U/L (30-135); Glucose 79 mg/dL (74-99); Potassium 4.6 mmol/L (3.5-5.1); Sodium 139 mmol/L (137-145); Total Bilirubin 0.4 mg/dL (0.2-1.3); Total Protein 6.9 g/dL (6.3-8.2)
[2018-02-07 15:28] LABS: T4, Free (Free Thyroxine) 1.21 ng/dL (0.78-2.19)
[2018-02-07 17:35] LABS: Erythrocyte Sedimentation Rate 14 mm/hr (0-20)
[2018-02-07 18:46] LABS: Vitamin D 25 Hydroxy 16.5 ng/mL (30.0-100.0)
== END | disposition home or self-care (01) ==
LOC: LABWHC1 14:02
PROVIDERS: ATTEND Physician Assistant
DX: E03.9 Hypothyroidism, unspecified (principal); R90.82 White matter disease, unspecified; R53.1 Weakness
CPT/HCPCS: 36415; 80053; 82085; 82306; 82550; 82607; 84439; 84443; 84481; 85025; 85652; 86038; 86140

== ENCOUNTER → 2018-02-16 | Outpatient (CLI) | payer OTHER ==
--- NOTE | 2018-02-16 20:54 | MR ---
EXAMINATION TYPE: MR cervical spine wo/w con DATE OF EXAM: 02/16/2018 COMPARISON: Thoracic spine and lumbar spine MRIs dated 12/17/2017 HISTORY: White matter changes / Cervicalgia / HAN TECHNIQUE: Multiplanar, multisequence images of the cervical spine were acquired utilizing 9.5 mL intravenous Ga davist gadolinium contrast. Diffusion weighted imaging was performed. FINDINGS: There is very mild retrolisthesis of C5 on C6 with degenerative endplate changes, otherwise the cervical spine vertebral bodies maintain normal alignment. Vertebral body heights are maintained throughout the cervical spine. No bone marrow edema is seen. No abnormal postcontrast enhancement. S darius cord signal is homogeneous throughout. The level degenerative disc disease is seen. C2-C3: There is a small central disc osteophyte complex without spinal canal stenosis nor neural fora yuliet narrowing. C3-C4: There is a small central disc osteophyte complex without spinal canal stenosis nor neural fora yuliet narrowing. C4-C5: There is uncovertebral hypertrophy on the left creating minimal left neural foraminal narrowin g and a broad-based disc bulge mildly narrowing the ventral subarachnoid space, however CSF is seen a nteriorly and therefore there is no significant spinal canal stenosis. No focal disc herniation. C5-C6: There is a broad-based disc bulge, facet arthropathy and uncovertebral hypertrophy mildly narr owing the left neural foramen. This also creates very mild spinal canal stenosis as there is narrowin g of the ventral subarachnoid space. Right neuroforamen is patent. C6-C7: Small central disc osteophyte complex is seen without spinal canal stenosis nor neural foramin al narrowing. C7-T1: No evidence for degenerative disc disease. No disc bulge/herniation or protrusion. No Canal stenosis. Foramina are patent bilaterally. IMPRESSION: 1. Multilevel degenerative disc disease resulting in mild spinal canal stenosis at C5-C6 and multilev el neural foraminal narrowing as described above. No focal disc herniation. 2. Very mild retrolisthesis of 5 on C6, likely on a degenerative basis. 3. No evidence of abnormal postcontrast enhancement.
== END | disposition home or self-care (01) ==
LOC: RADMRIMAIN 13:13
PROVIDERS: ATTEND Physician Assistant
DX: M50.322 Other cervical disc degeneration at C5-C6 level (principal); M43.12 Spondylolisthesis, cervical region
CPT/HCPCS: 72156; A9581

== ENCOUNTER → 2021-06-10 | Outpatient (CLI) | payer MEDICARE | END | disposition home or self-care (01) | LOC: LABMOB 11:38 | PROVIDERS: ATTEND Orthopaedic Surgery | DX: Z01.812 Encounter for preprocedural laboratory examination (principal); M16.12 Unilateral primary osteoarthritis, left hip | CPT/HCPCS: 87070 ==

== ENCOUNTER → 2021-06-13 | Outpatient (CLI) | payer MEDICARE | END | disposition home or self-care (01) | LOC: LABPAT 14:44 | PROVIDERS: ATTEND Internal Medicine | DX: Z01.818 Encounter for other preprocedural examination (principal); R94.5 Abnormal results of liver function studies | CPT/HCPCS: 93005 ==

== ENCOUNTER 2021-06-21 08:58 | Day surgery (SDC) | payer MEDICARE ==
[2021-06-20 13:53] VITALS: BMI 31.3
--- NOTE | 2021-06-21 08:17 | HP ---
HISTORY AND PHYSICAL CHIEF COMPLAINT: Left hip pain. HISTORY OF PRESENT ILLNESS: The patient is a 56-year-old female who presents with progressive left hip pain for the past 4 years. It has worsened recently. She is having groin and thigh pain, worse with weightbearing activities. She is also having night symptoms. She has been limping. She has tried medications without much relief. PAST MEDICAL HISTORY: Significant for COPD, depression and fibromyalgia. SURGICAL HISTORY: Significant for wrist surgery, lithotripsy, hernia repair and hysterectomy. CURRENT MEDICATIONS: Ibuprofen, meclizine, Xanax, amitriptyline, cyclobenzaprine, Symbicort. ALLERGIES: DILANTIN AND CIPROFLOXACIN. FAMILY HISTORY: Significant for cancer and heart disease. SOCIAL HISTORY: Significant for one pack per day tobacco use. REVIEW OF SYSTEMS: Sixteen-point review of systems otherwise reviewed and is noncontributory. PHYSICAL EXAMINATION: On examination, the patient is approximately 5 feet 7 inches, 210 pounds of endomorphic habitus. HEENT exam is nonfocal. Neck is supple. Passive motion of left hip: Flexion 70 degrees, external rotation with hip flexed 50 degrees, internal rotation zero degrees with pain. Clinically she has 1 cm shortening of the left lower extremity compared to the right. She has an antalgic gait pattern. Her distal neurovascular exam appears intact in the left lower extremity. AP and lateral views of the left hip obtained in the office show severe left hip osteoarthrosis with subchondral sclerosis and cystic changes. [id number] arthrosis is noted. IMPRESSION: Left hip severe osteoarthrosis. RECOMMENDATIONS: I talked to the patient at length regarding her condition along with treatment options. At this point she is quite symptomatic and limited because of pain related to her osteoarthrosis despite conservative measures. After thorough discussion, she opts to proceed with surgery. We will plan to proceed with left total hip arthroplasty utilizing a lateral approach. Risks and benefits were discussed at length in layman's terms. We will institute DVT prophylaxis postoperatively. MMODL / IJN: [id number] /
[~2021-06-21 08:58] MED LIST changes: -ACETAMINOPHEN TAB 325 MG TAB ONE; -ACETAMINOPHEN TAB 325 MG TAB PO PRN; +ACETAMINOPHEN TAB 500 MG TAB PO PRN; -ALPRAZolam 0.25 MG TAB PO PRN; -ALPRAZolam 0.5 MG TAB PO PRN; -ASPIRIN 325 MG TAB PO STA; -ASPIRIN 81 MG PO SCH; -ATORVASTATIN 80 MG TAB PO STA; -HEPARIN SODIUM 1,000 UN/ML (10ML VL) ONE; -IOHEXOL 350 MG/ML 125ML BOTTLE INJ ONE; -LIDOCAINE 2% INJ 20 MG/ML (20 ML MDV) ONE; -LIDOCAINE 2% INJ 20 MG/ML SQ ONE; -MECLIZINE 12.5 MG TAB PO PRN; +MELOXICAM 7.5 MG TAB PO PRN; -MIDAZOLAM 2 MG/2 ML VIAL ONE; -NITROGLYCERIN SL TABS 0.4 MG TAB SUBLINGUAL PRN; -RX INFO: IV CONTRAST WAS GIVEN 1 EACH MISC MISCELLANE PRN; -SODIUM CHLORIDE 0.9% 1,000 ML IV SCH; -SODIUM CHLORIDE 0.9% 1,000 ML in EMPTY BAG 1 BAG IV ONE; +TRANEXAMIC ACID 1,000 MG in SODIUM CHLORIDE 0.9% 100 ML IVPB PRN; -VERAPAMIL 2.5 MG/ML 2 ML AMP ONE; -VERAPAMIL SYRINGE (5 MG/10 ML) INTRAARTER ONE; -fentaNYL (PF) 50 MCG/ML 2 ML AMP IV ONE; -fentaNYL (PF) 50 MCG/ML 2 ML AMP ONE
[2021-06-21] MEDS ORDERED: LACTATED RINGERS 1,000 ML IV ONE ×2 (09:55→11:43)
[2021-06-21] MEDS ORDERED: LIDOCAINE 1% (10MG/ML) FOR IV START INTRADERMA ONE (09:55)
[2021-06-21] MEDS ORDERED: ONDANSETRON 4 MG/2 ML VIAL IVP ONE (10:00)
[2021-06-21] MEDS ORDERED: DEXAMETHASONE SOD PHOSPHATE 4 MG/ML 1 ML VIAL IV ONE (10:00)
[2021-06-21] MEDS ORDERED: ceFAZolin 1,000 MG in SODIUM CHLORIDE 0.9% 1,000 ML IRRIGATION ONE (11:13)
[2021-06-21] MEDS ORDERED: NALOXONE 0.4 MG/ML 1 ML VIAL IV PRN (12:28)
[2021-06-21] MEDS ORDERED: HYDROcodone/APAP 5-325MG 1 EACH TAB PO PRN (12:28)
--- NOTE | 2021-06-21 12:52 | P.OP ---
Date of Procedure: 06/21/21 Preoperative Diagnosis: Left hip severe osteoarthrosis Postoperative Diagnosis: Same Procedure(s) Performed: Left total hip arthroplastypress-fitlateral approach Implants: Depuy Corail size 12 standard offset collared femoral stem, 52 mm [place] acetabular shell, 36+1.5 cobalt chrome femoral head, neutral polyethylene liner. Anesthesia: spinal Surgeon: Kit Cisneros Cheese Processor #1: Jorge Luis Luna Estimated Blood Loss (ml): 200 Pathology: other (Femoral head) Condition: stable Disposition: PACU Indications for Procedure: The patient's 56-year-old female presents with progressive left hip pain secondary to osteoarthrosis despite conservative measures. He discussion of the risks and benefits of operative intervention versus continued conservative measures was made with patient. She opted to proceed with surgery. Operative risks to include infection, neurovascular injury, development of blood clots, leg length discrepancy, fracture, instability and possible need for subsequent procedures was discussed. Informed consent was obtained. Operative Findings: As below Description of Procedure: The patient was brought to the operating room, and after induction of spinal anesthesia was placed in a lateral decubitus position. The bony prominences were appropriately padded. The pelvis was stable perpendicular to the floor with a pegboard. The left lower extremity was prepped and draped in normal fashion. A 12 cm incision was then made centered over the greater trochanter extending superiorly to level the ASIS and distally in line with the femoral shaft. The skin and subcutaneous tissues were divided sharply. Electrocautery was used for hemostasis. The fascia noah and gluteus fidelina fascia was split in line with the skin incision. The muscle fibers were bluntly dissected proximally. A self-retaining retractor was placed. The anterior and posterior margins of the gluteus medius muscles identified and the anterior two thirds was detached from the greater trochanter with electrocautery. The gluteus minimus tendon was identified and detached in a similar fashion. A wide capsulotomy was performed. The femoral neck fracture was identified in the lower neck cut was made approximately 1 1/2 cm above the level of the lesser trochanter with a sagittal saw at a 45 the shaft. The head was then extracted with a corkscrew. Attention was then paid towards preparing the acetabular. Anterior and posterior retractors were placed. The remaining capsular labral tissues debrided sharply clearly defining the acetabular margins. Began reaming with a 47 mm reamer taking care to initially medialize, then reaming at 45 of abduction and 20 of anteversion. Sequential reaming is performed up to 51 mm. This was down to bleeding bony surface. A trial 52 mm acetabular shell was inserted at 45 of abduction and 20 of anteversion. This was fully seated. There was good rim fit and stability. A neutral polyethylene liner was then impacted. Care taken to avoid any soft tissue interposition. Attention was then paid towards preparing the proximal femur. A box chisel was used to open the metaphyseal region. A canal finder was used to find the femoral canal. Sequential broaching was performed up to a size 12. This is placed in 15 of anteversion with the leg perpendicular floor judging off the trans-epicondylar axis. There is good rotational stability. A calcar mill was used to fashion the medial calcar. A trial standard neck along with a 36 mm + 1.5 trial head was placed. The hip was gently reduced. It was taken through range of motion. I felt to be stable in flexion and extension with internal and external rotation. I felt there was adequate nondenominational of soft tissue tension. The hip was gently dislocated. The trial components removed. Pulsatile lavage was utilized. The final size 12 standard collared femoral stem was inserted again with the leg perpendicular to the floor in 15 of anteversion. Again there was good rotational stability. A 36 mm + 1.5 cobalt chrome femoral head was gently impacted. The hip was gently reduced. Again it was taken through motion and felt to be stable in flexion and extension with internal and external rotation. Pulsatile lavage was again utilized. With the leg in abduction the gluteus minimus and medius tendons reattached to the greater trochanter with #2 Ethibond suture. There was minimal drainage therefore a deep drain was not placed. The fascia noah and gluteus fidelina fascia was closed with #2 Ethibond suture. The subcutaneous tissues were reapproximated interrupted 2-0 Vicryl sutures. The skin was reapproximated with 3-0 subcuticular strata fix suture. Skin tape and adhesive was applied. A sterile dressing was applied. The patient was awoken from sedation and transferred to recovery room in good condition. Blood loss was estimated 200 mL. No complications were incurred. Sponge and needle counts were correct in the case. Jorge Luis HATHAWAY assisted during the major composes case to include exposure, implantation, and closure.
--- NOTE | 2021-06-21 13:30 | XR ---
EXAMINATION TYPE: XR Hip Limited LT DATE OF EXAM: 06/21/2021 COMPARISON: NONE HISTORY: Postop TECHNIQUE: One view submitted. FINDINGS: There is postsurgical change in near anatomic alignment. There is soft tissue edema and emphysema. IMPRESSION: 1. Postoperative change. Appears in near-anatomic alignment.
[2021-06-21] MEDS ORDERED: HYDROmorphone 0.5 MG/0.5 ML SYRINGE IVP ONE (15:15)
[2021-06-21] MEDS ORDERED: diphenhydrAMINE 50 MG/ML 1 ML VIAL IVP ONE (15:17)
[2021-06-21] MEDS: HYDROcodone/APAP 7.5-325MG 1 EACH TAB PO PRN ×2 (17:50→22:42)
[2021-06-21] MEDS ORDERED: SYMBICORT 160-4.5 MCG INHALER INHALATION PRN (19:16)
[2021-06-21] MEDS ORDERED: OXYBUTYNIN 15 MG TAB.ER.24 PO PRN (19:16)
[2021-06-21] MEDS ORDERED: ALPRAZolam 0.25 MG TAB PO PRN (19:16)
[2021-06-21] MEDS: SENNOSIDES-DOCUSATE SODIUM 1 EACH TAB PO SCH (20:27)
[2021-06-21] MEDS: AMITRIPTYLINE HCL 10 MG TAB PO PRN (20:27)
[2021-06-22] MEDS: HYDROcodone/APAP 7.5-325MG 1 EACH TAB PO PRN ×4 (04:51→20:59)
[2021-06-22] MEDS: ENOXAPARIN 40 MG/0.4 ML SYRINGE SQ SCH (10:05)
[2021-06-22 10:16] LABS: Basophils # (A) 0.01 X 10*3/uL (0.00-0.10); Basophils % (A) 0.1 %; Eosinophils # (A) 0.02 X 10*3/uL (0.04-0.35); Eosinophils % (A) 0.2 %; HCT 30.1 % (37.2-46.3); Immature Grans, Automated 0.4 %; Lymphocytes # (A) 2.47 X 10*3/uL (0.90-5.00); Lymphocytes % (A) 30.5 %; MCH 31.5 pg (27.0-32.0); MCHC 33.2 g/dL (32.0-37.0); Mean Platelet Volume 10.2 fL (9.5-12.2); Monocytes # (A) 0.45 X 10*3/uL (0.20-1.00); Monocytes % (A) 5.5 %; NRBC Per 100 WBC 0 /100 WBCS (0.0-0.0); Neutrophils # (A) 5.13 X 10*3/uL (1.80-7.70); Neutrophils % (A) 63.3 %; Platelet Count 204 X 10*3/uL (140-440); RBC 3.17 X 10*6/uL (4.10-5.20); RDW 13.8 % (11.5-14.5); WBC 8.11 X 10*3/uL (4.50-10.00)
--- NOTE | 2021-06-22 11:06 | P.PN ---
Subjective Progress Note Date: 06/22/21 Principal diagnosis: Left hip osteoarthritis Patient was seen at bedside this morning sitting up in chair. Patient says she is in significant amount of pain in left hip. Patient says there is some radiation of the pain down her left leg. Patient says she did get up with physical therapy and walk in the crowder and up-and-down a couple steps. Patient says she has been up multiple times to the bathroom since yesterday. Patient says she's also had some pain which she describes as burning in nature over the incision. Patient does mention that she has a history of fibromyalgia and spine issues. Patient denies chest pain, fever, shortness of breath, nausea, vomiting, change in vision, loss of bowel/bladder control. Objective - Vital Signs Vital signs: Vital Signs Temp 99.2 F 06/22/21 07:50 Pulse 77 06/22/21 07:50 Resp 16 06/22/21 07:50 BP 122/70 06/22/21 07:50 Pulse Ox 96 06/22/21 02:23 Intake & Output 06/21/21 06/22/21 06/22/21 18:59 06:59 18:59 Intake Total 2025 Output Total 200 Balance 1826 Weight 91.7 kg Intake: IV 2025 Output: Estimated Blood Loss 200 Other: Voiding Method Toilet Toilet # Voids 3 - Exam Left hip: Incision is clean, dry, and intact. The mesh tape is in good condition. There is minimal soft tissue swelling and ecchymosis surrounding the medial and lateral aspects of the incision. Calf is soft, no tenderness with palpation. Plantar flexion, dorsiflexion, EHL, FHL are intact. Sensory exam to light touch throughout the extremity is intact, dorsal pedis pulses 2+. - Labs CBC & Chem 7: 06/22/21 04:52 Labs: Abnormal Lab Results - Last 24 Hours (Table) 06/22/21 Range/Units 04:52 RBC 3.17 L (4.10-5.20) X 10*6/uL Hgb 10.0 L (12.0-15.0) g/dL Hct 30.1 L (37.2-46.3) % Eosinophils # 0.02 L (0.04-0.35) X 10*3/uL Assessment and Plan Assessment: Left hip osteoarthritis Postoperative day #1 status post left total hip arthroplasty Plan: 1. Left hip osteoarthritis - left total hip arthroplasty performed yesterday, 06/21/2021. Patient stable at bedside this morning. Patient had moderate amount of pain. Pain medications will be adjusted. Plan is for [facility] to stay one more night. Plan discharge home without services, tomorrow, , 06/23/2021. 2. Appreciate medical management 3. Pain management - [place] 7.5 mg/325 mg; at gabapentin 300 mg twice a day; and Dilaudid 0.5 mg every 3 hrs only if needed 4. DVT prophylaxis - Lovenox 5. GI prophylaxissenna 6. PT/OT - weightbearing as tolerated with walker 7. Encourage incentive spirometer use 8. Discharge planning - plan discharge home tomorrow, , 06/23/2021 with health services Time with Patient: Less than 30
[2021-06-22] MEDS ORDERED: HYDROmorphone 1 MG/ML 1 ML SYRINGE IVP PRN (11:11)
--- NOTE | 2021-06-22 11:35 | P.CONS ---
History of Present Illness - Reason for Consult COPD - History of Present Illness Patient is a 48-year-old female admitted for left hip arthroplasty patient is still having significant pain although improved compared to yesterday patient did not pass gas yet. Patient does have history of smoking does have history of COPD he smokes about one pack of cigarettes per day patient does have some wheezing on exam comparing of cough without any significant sputum production. REVIEW OF SYSTEMS: CONSTITUTIONAL: No fever, no malaise, no fatigue. HEENT: No recent visual problems or hearing problems. Denied any sore throat. CARDIOVASCULAR: No chest pain, orthopnea, PND, no palpitations, no syncope. PULMONARY: no hemoptysis. GASTROINTESTINAL: No diarrhea, no nausea, no vomiting, no abdominal pain. NEUROLOGICAL: No headaches, no weakness, no numbness. HEMATOLOGICAL: Denies any bleeding or petechiae. GENITOURINARY: Denies any burning micturition, frequency, or urgency. MUSCULOSKELETAL/RHEUMATOLOGICAL: Denies any joint pain, swelling, or any muscle pain. ENDOCRINE: Denies any polyuria or polydipsia. The rest of the 14-point review of systems is negative. PHYSICAL EXAMINATION: GENERAL: The patient is alert and oriented x3, not in any acute distress. Well developed, well nourished. HEENT: Pupils are round and equally reacting to light. EOMI. No scleral icterus. No conjunctival pallor. Normocephalic, atraumatic. No pharyngeal erythema. No thyromegaly. CARDIOVASCULAR: S1 and S2 present. No murmurs, rubs, or gallops. PULMONARY: Mild expiratory wheezing on exam. ABDOMEN: Soft, nontender, nondistended, normoactive bowel sounds. No palpable organomegaly. MUSCULOSKELETAL: No joint swelling or deformity. EXTREMITIES: No cyanosis, clubbing, or pedal edema. NEUROLOGICAL: Gross neurological examination did not reveal any focal deficits. SKIN: No rashes. Assessment and plan -COPD with mild acute exacerbation will not require any systemic steroids patient will be started on inhaled steroids and albuterol inhalational. Patient is not requiring any oxygen -Nicotine use: Counseling was provided -Fibromyalgia -Primary osteoarthritis multiple joints patient the had left hip arthroplasty of this hospitalization DVT prophylaxis: As per primary service Past Medical History Past Medical History: Chest Pain / Angina, COPD, Fibromyalgia, GERD/Reflux, Osteoarthritis (OA), Syncope Additional Past Medical History / Comment(s): chronic pain, neck spurs, low back problems,eye floaters,headaches daily,COPD per Dr Pendleton's medical clearance. History of Any Multi-Drug Resistant Organisms: MRSA Year Discovered:: 2010 MDRO Source:: RT BUTTOCK Past Surgical History: Hysterectomy, Orthopedic Surgery Additional Past Surgical History / Comment(s): bowel prolapse repair, tubal , kidney surgery to remove stones. RT WRIST SX Past Anesthesia/Blood Transfusion Reactions: Previous Problems w/ Anesthesia Additional Past Anesthesia/Blood Transfusion Reaction / Comm: SLOW TO COME OUT OF ANESTHESIA Past Psychological History: No Psychological Hx Reported Smoking Status: Current every day smoker Past Alcohol Use History: Occasional Additional Past Alcohol Use History / Comment(s): SMOKES PPD SINCE AGE 11 Past Drug Use History: Marijuana Additional Drug Use History / Comment(s): uses marijuana daily - Past Family History Father Family Medical History: Cancer, Coronary Artery Disease (CAD) Additional Family Medical History / Comment(s): heart blockage, Prostate CA Mother Family Medical History: Cancer Additional Family Medical History / Comment(s): lung CA,cervical/uterine CA,abdominal aneurysm Medications and Allergies Home Medications Medication Instructions Recorded Confirmed Type ALPRAZolam [Xanax] 0.25 mg PO HS PRN 06/17/21 06/20/21 History Amitriptyline HCl [Elavil] 10 mg PO HS PRN 06/17/21 06/20/21 History Budesonide-Formot 160-4.5 Mcg 2 puff INHALATION BID PRN 06/17/21 06/20/21 History [Symbicort 160-4.5 Mcg Inhaler] Cyclobenzaprine [Flexeril] 10 mg PO TID PRN 06/17/21 06/20/21 History Ibuprofen [Motrin] 800 mg PO Q8H PRN 06/17/21 06/20/21 History Oxybutynin Chloride [Oxybutynin 15 - 30 mg PO DAILY PRN 06/17/21 06/20/21 History Chloride ER] Allergies Allergy/AdvReac Type Severity Reaction Status Date / Time hydromorphone [From Dilaudid] Allergy Severe Swelling Verified 06/21/21 09:35 bee venom protein (honey bee) Allergy Anaphylaxis Verified 06/21/21 09:35 ciprofloxacin [From Cipro] AdvReac Nausea Verified 06/21/21 09:35 meperidine [From Demerol] AdvReac Nausea & Verified 06/21/21 09:35 Vomiting,"I don't like the way it made me feel" Physical Exam Vitals: Vital Signs Temp Pulse Pulse Resp BP Pulse Ox 06/22/21 07:50 99.2 F 77 16 122/70 06/22/21 02:23 98.3 F 62 17 130/82 96 06/21/21 19:00 98.8 F 66 17 146/79 95 06/21/21 15:31 58 L 16 136/86 98 06/21/21 15:01 53 L 16 137/78 100 06/21/21 14:30 45 L 16 120/69 98 06/21/21 14:00 53 L 15 136/79 100 06/21/21 13:45 47 L 15 138/78 97 06/21/21 13:30 40 L 16 146/83 98 06/21/21 13:16 42 L 16 157/85 100 06/21/21 13:00 45 L 16 140/80 100 06/21/21 12:46 97.7 F 50 L 16 146/75 98 Intake and Output 06/21/21 06/22/21 06/22/21 22:59 06:59 14:59 Intake Total 275 Balance 275 Intake: IV 275 Other: Voiding Method Toilet Toilet # Voids 3 Weight 91.7 kg Results CBC & Chem 7: 06/22/21 04:52 Labs: Abnormal Lab Results - Last 24 Hours (Table) 06/22/21 Range/Units 04:52 RBC 3.17 L (4.10-5.20) X 10*6/uL Hgb 10.0 L (12.0-15.0) g/dL Hct 30.1 L (37.2-46.3) % Eosinophils # 0.02 L (0.04-0.35) X 10*3/uL
[2021-06-22] MEDS ORDERED: GABAPENTIN 300 MG CAP PO STA (11:41)
[2021-06-22] MEDS: GABAPENTIN 300 MG CAP PO SCH (21:00)
[2021-06-22] MEDS: AMITRIPTYLINE HCL 10 MG TAB PO PRN (21:00)
[2021-06-22] MEDS: SENNOSIDES-DOCUSATE SODIUM 1 EACH TAB PO SCH (21:00)
[2021-06-23] MEDS: HYDROcodone/APAP 7.5-325MG 1 EACH TAB PO PRN (04:49)
--- NOTE | 2021-06-23 07:47 | P.PN ---
Subjective Progress Note Date: 06/23/21 Principal diagnosis: Left hip osteoarthritis Patient was seen at bedside this morning sitting up in chair. Her pain is under much better control this morning. Patient says she did get up with physical therapy and walk in the crowder and up-and-down a couple steps. Patient says she has been up multiple times to the bathroom since yesterday. Patient says she's also had some pain which she describes as burning in nature over the incision. Patient does mention that she has a history of fibromyalgia and spine issues. Patient says she is ready to go home today. Patient denies chest pain, fever, shortness of breath, nausea, vomiting, change in vision, loss of bowel/bladder control. Objective - Vital Signs Vital signs: Vital Signs Temp 99.0 F 06/23/21 02:16 Pulse 83 06/23/21 02:16 Resp 15 06/23/21 02:16 BP 129/85 06/23/21 02:16 Pulse Ox 94 L 06/23/21 02:16 Intake & Output 06/22/21 06/23/21 06/23/21 18:59 06:59 18:59 Other: Voiding Method Toilet Toilet # Voids 4 - Exam Left hip: Incision is clean, dry, and intact. The mesh tape is in good condition. There is minimal soft tissue swelling and ecchymosis surrounding the medial and lateral aspects of the incision. Calf is soft, no tenderness with palpation. Plantar flexion, dorsiflexion, EHL, FHL are intact. Sensory exam to light touch throughout the extremity is intact, dorsal pedis pulses 2+. - Labs CBC & Chem 7: 06/22/21 04:52 Labs: Abnormal Lab Results - Last 24 Hours (Table) 06/22/21 Range/Units 04:52 RBC 3.17 L (4.10-5.20) X 10*6/uL Hgb 10.0 L (12.0-15.0) g/dL Hct 30.1 L (37.2-46.3) % Eosinophils # 0.02 L (0.04-0.35) X 10*3/uL Assessment and Plan Assessment: Left hip osteoarthritis Postoperative day #2 status post left total hip arthroplasty Plan: 1. Left hip osteoarthritis - left total hip arthroplasty performed yesterday, 06/21/2021. Patient stable at bedside this morning. Plan discharge home with health services, today, , 06/23/2021. 2. Appreciate medical management 3. Pain management - goign home with [place] 5mg/325mg and gabapentin 300 mg twice a day 4. DVT prophylaxis - Lovenox; going home with Eliquis 2.5 mg BID x 2 weeks 5. GI prophylaxissenna; going home with colace 6. PT/OT - weightbearing as tolerated with walker 7. Encourage incentive spirometer use 8. Discharge planning - discharge home today, , 06/23/2021 with health services Time with Patient: Less than 30
[2021-06-23 07:58] VITALS: BP 109/74; PULSE 89; RESP 18; TEMP 97.9
--- NOTE | 2021-06-23 07:59 | P.DS ---
Providers Date of admission: 06/21/2021 Expected date of discharge: 06/23/21 Attending physician: Kit Cisneros Consults: 06/21/21 12:31 Consult Physician Routine Consulting Provider: Eva Vieira Consult Reason/Comments: Medical Management s/p left total hip arthroplasty Do you want consulting provider notified?: Yes Primary care physician: Keerthi Sandoval Hospital Course: Date of admission: 06/21/2021. Date of discharge: 06/23/2021 Admission diagnosis: Left hip osteoarthritis Discharge diagnosis: Same Attending physician: Dr. Cisneros Surgical procedures: Left total hip arthroplasty Brief history: Patient is a 56-year-old female with a history of progressive primary left hip osteoarthritis. At this point patient has failed conservative treatment measures and has opted to proceed with a elective left total hip arthroplasty. Hospital course: Details of patient's surgery can be found in operative report. Patient tolerated the procedure well and was subsequently transported to orthopedic floor. Patient's orthopeidc and medical care was provided daily. Patient had daily laboratory tests performed for evaluation of overall blood counts. Patient had daily physical therapy to include strengthening range of motion as well as education with walker ambulation. Patient was treated with Lovenox for their postoperative DVT prophylaxis during their inpatient stay. Patient was noted to have a relatively uneventful postoperative course. Patient reported satisfactory pain control with oral pain medications by postoperative day 2. Patient showed satisfactory progress with physical therapy. Patient moved steadily through the program and had no difficulty meeting the goals by postoperative day 2. Given patient's otherwise satisfactory course and having met physical therapy goals, plan is to discharge patient home on postoperative day 2. Discharge condition/disposition: Patient will be discharged home in stable condition. Discharge medications: Instructions are given on resumption of patient's normal daily medications per primary care recommendation, in addition patient will be prescribed [place] 5 mg/325 mg; gabapentin 300 mg; Colace; Eliquis 2.5 mg BID x 2 weeks. Orthopedic Discharge Instructions: 1. Wound care and infection precautions, keep incision dry and covered while showering, no lotions, creams, moisturizers. No soaking, pools, hot tubs. Do not scrub over incision. 2. Weight-bear as tolerated with walker / cane until follow-up. 3. Ice and elevate when necessary. Do not exceed 20 minutes per hour with ice pack. 4. Utilize compression sleeve until seen at first follow up appointment. 5. Pain meds and anticoagulants per prescription. 6. Pain medication has potential to cause constipation. Increase oral fluid and fiber intake. Contact primary care provider if you have not had a bowel movement within 48 hours after discharge. 7. No anti-inflammatory medication until discussed at first post operative visit, this including Motrin, Aleve, Mobic, Diclofenac. 8. Follow up in office at 2 weeks postop with Fracisco Pink PA-C/Jorge Luis Luna PA-C 9. Follow up with your primary care doctor 7-10 days after discharge. 10. Contact [facility] with any questions, . Keep incision clean, dry, intact. While showering, cover mesh tape with Saran wrap. Keep mesh tape on until follow-up appointment in office in 2 weeks Medications: [place] 5 mg/325mg; gabapentin 300 mg twice a day; Colace; Eliquis 2.5 mg BID x 2 weeks Assessment: Left hip osteoarthritis Procedures: Left total hip arthroplasty Patient Condition at Discharge: Good Plan - Discharge Summary Discharge Rx Participant: No New Discharge Prescriptions: New Docusate [Colace] 100 mg PO DAILY #30 capsule Apixaban [Eliquis] 2.5 mg PO BID #60 tab HYDROcodone/APAP 5-325MG [[place] 5-325] 1 tab PO Q6HR PRN #36 tab PRN Reason: Pain Gabapentin 300 mg PO BID #14 cap No Action Amitriptyline HCl [Elavil] 10 mg PO HS PRN PRN Reason: depression ALPRAZolam [Xanax] 0.25 mg PO HS PRN PRN Reason: sleep Oxybutynin Chloride [Oxybutynin Chloride ER] 15 - 30 mg PO DAILY PRN PRN Reason: urinary leakage Budesonide-Formot 160-4.5 Mcg [Symbicort 160-4.5 Mcg Inhaler] 2 puff INHALATION BID PRN PRN Reason: sob Cyclobenzaprine [Flexeril] 10 mg PO TID PRN PRN Reason: Pain Ibuprofen [Motrin] 800 mg PO Q8H PRN PRN Reason: Pain Discharge Medication List ALPRAZolam [Xanax] 0.25 mg PO HS PRN 06/17/21 [History] Amitriptyline HCl [Elavil] 10 mg PO HS PRN 06/17/21 [History] Budesonide-Formot 160-4.5 Mcg [Symbicort 160-4.5 Mcg Inhaler] 2 puff INHALATION BID PRN 06/17/21 [History] Cyclobenzaprine [Flexeril] 10 mg PO TID PRN 06/17/21 [History] Ibuprofen [Motrin] 800 mg PO Q8H PRN 06/17/21 [History] Oxybutynin Chloride [Oxybutynin Chloride ER] 15 - 30 mg PO DAILY PRN 06/17/21 [History] Apixaban [Eliquis] 2.5 mg PO BID #60 tab 06/23/21 [Rx] Docusate [Colace] 100 mg PO DAILY #30 capsule 06/23/21 [Rx] Gabapentin 300 mg PO BID #14 cap 06/23/21 [Rx] HYDROcodone/APAP 5-325MG [[place] 5-325] 1 tab PO Q6HR PRN #36 tab 06/23/21 [Rx] Follow up Appointment(s)/Referral(s): [facility], [NON-STAFF] - As Needed Jorge Luis Luna, JOSHUA [PHYSICIAN DIRECTOR OF MATH] - 2 Weeks Activity/Diet/Wound Care/Special Instructions: Orthopedic Discharge Instructions: 1. Wound care and infection precautions, keep incision dry and covered while showering, no lotions, creams, moisturizers. No soaking, pools, hot tubs. Do not scrub over incision. 2. Weight-bear as tolerated with walker / cane until follow-up. 3. Ice and elevate when necessary. Do not exceed 20 minutes per hour with ice pack. 4. Utilize compression sleeve until seen at first follow up appointment. 5. Pain meds and anticoagulants per prescription. 6. Pain medication has potential to cause constipation. Increase oral fluid and fiber intake. Contact primary care provider if you have not had a bowel movement within 48 hours after discharge. 7. No anti-inflammatory medication until discussed at first post operative visit, this including Motrin, Aleve, Mobic, Diclofenac. 8. Follow up in office at 2 weeks postop with Fracisco Pink PA-C/Jorge Luis Luna PA-C 9. Follow up with your primary care doctor 7-10 days after discharge. 10. Contact [facility] with any questions, . Keep incision clean, dry, intact. While showering, cover mesh tape with Saran wrap. Keep mesh tape on until follow-up appointment in office in 2 weeks Medications: [place] 5 mg/325mg; gabapentin 300 mg twice a day; Colace; Eliquis 2.5 mg BID x 2 weeks Discharge Disposition: HOME WITH HOME HEALTH SERVICES
[2021-06-23] MEDS: ENOXAPARIN 40 MG/0.4 ML SYRINGE SQ SCH (08:34)
[2021-06-23] MEDS: GABAPENTIN 300 MG CAP PO SCH (08:34)
--- NOTE | 2021-06-23 12:57 | P.PN ---
Subjective Progress Note Date: 06/23/21 - Reason for Consult COPD - History of Present Illness Patient is a 48-year-old female admitted for left hip arthroplasty patient is still having significant pain although improved compared to yesterday patient did not pass gas yet. Patient does have history of smoking does have history of COPD he smokes about one pack of cigarettes per day patient does have some wheezing on exam comparing of cough without any significant sputum production. 06/23/2021 Patient is seen in follow-up this morning status post left hip arthroplasty is anticipating discharge today. Patient denies passing gas or bowel movement. Patient states she is urinating with no difficulties and was working with physical therapy and will be going home and her boyfriend will be staying with her to assist her in recovery. Discussed with the patient about smoking cessation. Patient denies any chest pain, shortness of breath, or palpitations. Patient is afebrile. Patient tolerating diet with no reports of nausea or vomiting noted. Vital signs are stable. Patient will follow-up with orthopedics outpatient and discussed with the patient about following up with primary care provider Dr. Pendleton. Review of systems: Constitutional: No reports of fatigue, fever, or chills Cardiovascular: No reports of chest pain or palpitations Respiratory: No reports of shortness of breath or cough GI: No reports of nausea, vomiting, or diarrhea : No reports of dysuria or retention Neurovascular: No reports of weakness or numbness, reports left hip pain All medications have been reviewed PHYSICAL EXAMINATION: GENERAL: The patient is alert and oriented x3, not in any acute distress. Well developed, well nourished. HEENT: Pupils are round and equally reacting to light. EOMI. No scleral icterus. No conjunctival pallor. Normocephalic, atraumatic. No pharyngeal erythema. No thyromegaly. CARDIOVASCULAR: S1 and S2 present. No murmurs, rubs, or gallops. PULMONARY: Mild expiratory wheezing on exam. ABDOMEN: Soft, nontender, nondistended, normoactive bowel sounds. No palpable organomegaly. MUSCULOSKELETAL: No joint swelling or deformity. EXTREMITIES: No cyanosis, clubbing, or pedal edema. Left hip surgical site dressing is dry and intact NEUROLOGICAL: Gross neurological examination did not reveal any focal deficits. SKIN: No rashes. Assessment and plan: -COPD with mild acute exacerbation will not require any systemic steroids, continue patient on inhalers and encourage the patient to avoid tobacco use once discharged -Nicotine use: Counseling was provided -Fibromyalgia -Primary osteoarthritis multiple joints, patient is status post left hip arthroplasty during this hospitalization -DVT prophylaxis: As per primary service Plan: Recommend continue with current medications and pain management per primary service. Patient is scheduled to be discharged today and awaiting for paperwork. Patient is planning on going home and will continue with outpatient rehab and states her boyfriend will be coming to stay with her for help. Encourage the patient to avoid tobacco use and follow-up with primary care provider on discharge. Will continue to follow during hospitalization and would like to thank you for this consultation. Objective - Vital Signs Vital signs: Vital Signs Temp 97.9 F 06/23/21 07:58 Pulse 89 06/23/21 07:58 Resp 18 06/23/21 07:58 BP 109/74 06/23/21 07:58 Pulse Ox 96 06/23/21 07:58 Intake & Output 06/22/21 06/23/21 06/23/21 18:59 06:59 18:59 Other: Voiding Method Toilet Toilet # Voids 4 - Labs CBC & Chem 7: 06/22/21 04:52 Labs: Abnormal Lab Results - Last 24 Hours (Table) 06/22/21 Range/Units 04:52 RBC 3.17 L (4.10-5.20) X 10*6/uL Hgb 10.0 L (12.0-15.0) g/dL Hct 30.1 L (37.2-46.3) % Eosinophils # 0.02 L (0.04-0.35) X 10*3/uL
== END 2021-06-23 11:27 | disposition home health service (06) ==
LOC: OR 08:58 → 4SSUR 12:45 → OR 06-23 11:27
PROVIDERS: ATTEND Orthopaedic Surgery
DX: M16.12 Unilateral primary osteoarthritis, left hip (principal); Z20.822 Contact with and (suspected) exposure to COVID-19
CPT/HCPCS: 27130; 97161; 97535; 97165; 86900; 86901; 85025; 85730; 86850; 88300; 87635; 73501; C1776; J1200; J1100; J0690 ×3; J2405; J1650; J1170

== ENCOUNTER → 2021-09-02 | Outpatient (CLI) | payer MEDICARE ==
[2021-09-03 00:47] LABS: Anion Gap 11.2 mmol/L (10.00-18.00); Potassium 3.9 mmol/L (3.5-5.5)
[2021-09-03 01:13] LABS: Basophils # (A) 0.03 X 10*3/uL (0.00-0.10); Basophils % (A) 0.4 %; Eosinophils % (A) 2.7 %; HCT 38.3 % (37.2-46.3); HGB 12.5 g/dL (12.0-15.0); Immature Grans, Automated 0.1 %; Lymphocytes % (A) 33.3 %; MCH 31.1 pg (27.0-32.0); MCHC 32.6 g/dL (32.0-37.0); MCV 95.3 fL (80.0-97.0); Mean Platelet Volume 10.5 fL (9.5-12.2); Monocytes # (A) 0.38 X 10*3/uL (0.20-1.00); Monocytes % (A) 5.1 %; NRBC Per 100 WBC 0 /100 WBCS (0.0-0.0); Neutrophils # (A) 4.39 X 10*3/uL (1.80-7.70); Neutrophils % (A) 58.4 %; Platelet Count 293 X 10*3/uL (140-440); RBC 4.02 X 10*6/uL (4.10-5.20); RDW 13.2 % (11.5-14.5); WBC 7.51 X 10*3/uL (4.50-10.00)
== END | disposition home or self-care (01) ==
LOC: LABPAT 14:50
PROVIDERS: ATTEND Orthopaedic Surgery
DX: Z01.812 Encounter for preprocedural laboratory examination (principal); R22.32 Localized swelling, mass and lump, left upper limb
CPT/HCPCS: 80051; 85025

== ENCOUNTER 2021-09-09 09:53 | Day surgery (SDC) | payer MEDICARE ==
[2021-09-07 15:10] VITALS: BMI 31.3
--- NOTE | 2021-09-08 12:07 | HP ---
HISTORY AND PHYSICAL CHIEF COMPLAINT: Left shoulder mass. HISTORY OF PRESENT ILLNESS: The patient is a 56-year-old [id number] retired female who presents with a left shoulder mass that she notes for the past several years. She notes it has not really gotten any bigger recently. It does bother her with clothing wear. She denies any real pain with it. She denies night symptoms. PAST MEDICAL HISTORY: Significant for asthma, depression, fibromyalgia. PAST SURGICAL HISTORY: Significant for hysterectomy, wrist surgery, lithotripsy, bowel surgery, hernia repair and left total hip arthroplasty. CURRENT MEDICATIONS: Ibuprofen, meclizine, Xanax, amitriptyline, cyclobenzaprine, oxybutynin, Symbicort and hydrocodone. ALLERGIES: CIPROFLOXACIN AND DILANTIN. FAMILY HISTORY: Significant for cancer and heart disease. SOCIAL HISTORY: Significant for social alcohol use and current tobacco use. REVIEW OF SYSTEMS: Sixteen-point review of systems otherwise reviewed and is noncontributory. PHYSICAL EXAMINATION: On examination, the patient is approximately 5 feet 7 inches, 200 pounds of endomorphic habitus. HEENT exam is nonfocal. Neck is supple. On examination of her left shoulder, she has a palpable soft tissue mass along the anterior superior aspect measuring 3 x 4 cm. She is nontender over that. She has full symmetric active range of motion of the left shoulder compared to the right. Motor strength is 5/5 for abduction and external rotation. Her distal neurovascular exam appears intact in the left upper extremity. MRI report 08/15/2021 left shoulder shows a soft tissue mass consistent with a lipoma. 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 RECOMMENDATIONS: I talked to the patient at length regarding her condition along with treatment options. At this point she opts to proceed with surgery. We will plan to proceed with soft tissue mass excision from her left shoulder. We will likely perform that as an outpatient procedure. Risks and benefits were discussed at length in layman's terms. MMODL / IJN: [id number] /
[~2021-09-09 09:53] MED LIST changes: -ACETAMINOPHEN TAB 500 MG TAB PO PRN; +DEXAMETHASONE SOD PHOSPHATE 4 MG/ML 1 ML VIAL IV ONE; +LACTATED RINGERS 1,000 ML IV SCH; -MELOXICAM 7.5 MG TAB PO PRN; +MIDAZOLAM 2 MG/2 ML VIAL IV PRN; +ONDANSETRON 4 MG/2 ML VIAL IVP ONE; +SCOPOLAMINE 1 MG/72 HR PATCH TRANSDERM ONE; -TRANEXAMIC ACID 1,000 MG in SODIUM CHLORIDE 0.9% 100 ML IVPB PRN; +fentaNYL (PF) 50 MCG/ML 2 ML AMP IV PRN
[2021-09-09 10:29] VITALS: TEMP 97.5
[2021-09-09] MEDS ORDERED: fentaNYL (PF) 50 MCG/ML 2 ML AMP ONE (11:41)
[2021-09-09] MEDS ORDERED: PROPOFOL 10 MG/ML 20 ML VIAL IV ONE (11:41)
[2021-09-09] MEDS ORDERED: SUCCINYLCHOLINE CHLORIDE 100 MG/5 ML SYR IV ONE (11:41)
[2021-09-09] MEDS ORDERED: LIDOCAINE 2% INJ 20 MG/ML (2 ML VIAL) ONE (11:41)
[2021-09-09] MEDS ORDERED: MIDAZOLAM 2 MG/2 ML VIAL ONE (11:41)
[2021-09-09] MEDS ORDERED: BUPIVACAINE (PF) 0.25% 30 ML VIAL SQ ONE (11:45)
--- NOTE | 2021-09-09 12:28 | P.OP ---
Date of Procedure: 09/09/21 Preoperative Diagnosis: Left shoulder soft tissue mass Postoperative Diagnosis: Probable lipoma Procedure(s) Performed: Excision soft tissue mass left shoulder Anesthesia: MARY local Surgeon: Kit Cisneros [employer] Worker #1: Jorge Luis Luna Estimated Blood Loss (ml): 10 Pathology: other (3 x 2 1/2 x 1 1/2 cm fatty soft tissue mass) Condition: stable Disposition: PACU Indications for Procedure: The patient's a 56-year-old female who presents with a soft tissue mass about the anterior aspect of her left shoulder for the past several years. 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 Discussion the risks and benefits of excision this was made with patient. She opted to proceed. Risks of the procedure to include infection, recurrence, possible need for subsequent procedures was discussed. Informed consent was obtained. Operative Findings: As below Description of Procedure: The patient was brought to the operating room, and after induction of general anesthesia was placed in a beachchair position. Bony prominences were appropriately padded. The left upper extremity was prepped and draped in normal fashion. The soft tissue mass was palpable but the anterolateral aspect of the left shoulder. A 2 cm incision was made centered over this. Skin was incised sharply. Subcu tissues were divided bluntly. Electrocautery was used for hemostasis. The deltoid muscle was bluntly opened in line with the muscle fibers. The soft tissue mass was then fully excised. It measured 3 x 2.5 x 1.5 cm. It appeared to be a fatty tumor. I felt I had complete resection at this point. This was sent for pathology. The wound was irrigated normal saline. Injected 10 mL of quarter percent plain Marcaine into the local soft tissues. The subcutaneous tissues were reapproximated interrupted 2-0 Vicryl sutures. Skin was reapproximated with 3-0 subcuticular Prolene suture. Steri-Strips were applied. A sterile dressing was applied. The patient was awoken from general anesthesia and transferred to recovery room in good condition. Blood loss was estimated 3 mL. No complications were incurred. Sponge and needle counts were correct in the case.
[2021-09-09 12:34] VITALS: RESP 16
[2021-09-09 13:48] VITALS: BP 132/71; PULSE 71
== END 2021-09-09 13:59 | disposition home or self-care (01) ==
LOC: OR 09:53
PROVIDERS: ATTEND Orthopaedic Surgery
DX: D17.9 Benign lipomatous neoplasm, unspecified (principal); F32.A Depression, unspecified; M79.7 Fibromyalgia; J44.9 Chronic obstructive pulmonary disease, unspecified; Z90.710 Acquired absence of both cervix and uterus; Z96.642 Presence of left artificial hip joint; Z98.890 Other specified postprocedural states; Z82.49 Family history of ischemic heart disease and other diseases of the circulatory system; Z80.9 Family history of malignant neoplasm, unspecified; Z79.1 Long term (current) use of non-steroidal anti-inflammatories (NSAID); Z79.891 Long term (current) use of opiate analgesic; Z79.51 Long term (current) use of inhaled steroids; Z79.899 Other long term (current) drug therapy; Z88.5 Allergy status to narcotic agent; Z88.1 Allergy status to other antibiotic agents; Z88.8 Allergy status to other drugs, medicaments and biological substances; Z88.3 Allergy status to other anti-infective agents; Z91.030 Bee allergy status
CPT/HCPCS: 23076; 88304; J2250; J1100; J0690; J2405; J3010; J0330; J2704; J2001

== ENCOUNTER → 2023-07-25 | Outpatient (CLI) | payer MEDICARE ==
--- NOTE | 2023-07-25 14:14 | CTL ---
EXAMINATION TYPE: CT Low Dose Lung DATE OF EXAM ORDERED: 07/25/2023 HISTORY: . Lung cancer screening CT DLP: 84.[address] CTDI: 2.4 mGy Automated exposure control for dose reduction was used. SCREENING VISIT: COMPARISON: TECHNIQUE: Low dose computed tomography scan was performed through the chest at 1 mm thick sections a nd reconstructed images in multiple planes at 1 mm and [address] DIAGNOSTIC QUALITY: Satisfactory FINDINGS: LUNG NODULES: There are no significant pulmonary nodules. LUNGS: COPD: Severity: None Fibrosis: Severity: None Lymph nodes: No adenopathy. Other findings: RIGHT PLEURAL SPACE: Effusion: None Calcification: None Thickening: None Pneumothorax: None LEFT PLEURAL SPACE: Effusion: None Calcification: None Thickening: None Pneumothorax: None HEART: Heart Size: Normal Coronary Calcification: None Pericardial Effusion: None OTHER FINDINGS: Upper abdomen: None Bony thorax: None Supraclavicular region: None Other: None IMPRESSION: 1. Negative lung cancer screening examination for significant pulmonary nodules. CT LUNG RAD AND CT CHEST RECOMMENDATION: Lung-Rad 1 Negative: Continue annual screening with LDCT in 12 months.
== END | disposition home or self-care (01) ==
LOC: RADCTMAIN 12:58
PROVIDERS: ATTEND Family Medicine
DX: Z12.2 Encounter for screening for malignant neoplasm of respiratory organs (principal); F17.210 Nicotine dependence, cigarettes, uncomplicated
CPT/HCPCS: 71271

== ENCOUNTER → 2024-01-18 | Outpatient (CLI) | payer MEDICARE ==
--- NOTE | 2024-01-18 14:00 | US ---
EXAMINATION TYPE: US arterial LE single level DATE OF EXAM: 01/18/2024 1:35 PM CLINICAL INDICATION: Female, 58 years old with history of M79.10 Myalgia, unspecified; Patient states her legs give out. History of: Smoker: Current Smoker Hypertension: No Diabetic: No Hyperlipidemia: Yes TIA/CVA: No Previous Vascular Surgery: No CAD: No IN: No Vascular Ulcers: No Claudication: No Gangrene: No Doppler Waveforms: Right: Multiphasic Left: Multiphasic Right Brachial Pressure: 121 Left Brachial Pressure: 126 Ankle-Brachial Indices: Right: 1.3 Left: 1.2 (Vessel hardening > 1.4; Normal 0.9 - 1.4, Moderate 0.7 - 0.9, Severe 0.5-0.7) IMPRESSION: Normal bilateral JES.
== END | disposition home or self-care (01) ==
LOC: RADUSWWP 13:00
PROVIDERS: ATTEND Family Medicine
DX: M79.10 Myalgia, unspecified site (principal)
CPT/HCPCS: 93922

== ENCOUNTER → 2024-08-06 | Outpatient (CLI) | payer MEDICARE ==
--- NOTE | 2024-08-06 09:29 | US ---
EXAMINATION TYPE: US abdomen comp/pelvis limited DATE OF EXAM: 08/06/2024 COMPARISON: NONE CLINICAL INDICATION: Female, 59 years old with history of R10.30 LOWER ABDOMINAL PAIN; Pt states lowe r ABD pain TECHNIQUE: Grayscale color Doppler imaging of the abdomen and pelvis. FINDINGS: EXAM MEASUREMENTS: Liver Length: 15.7 cm Gallbladder Wall: 0.2 cm CBD: 0.5 cm Spleen: 8.5 cm Right Kidney: 10.0 x 4.9 x 5.2 cm Left Kidney: 10.2 x 4.8 x 5.3 cm Pancreas: Possible ill-defined hypoechoic area near uncinate process= 3.3 x 2.0 x 0.8 cm Liver: wnl Gallbladder: Multiple gallstones at dependent portion, wall not thickened CBD: wnl Spleen: wnl Right Kidney: No evidence of hydro, upper and lower poles gassed out Left Kidney: No evidence of hydro, upper and lower poles gassed out Upper IVC: wnl Abd Aorta: ectatic without evidence of AAA Bladder: wnl Bilateral Jets Seen Yes There appears to be an ill-defined hypoechoic lesion near the uncinate process of the pancreas. The l iver appears unremarkable without focal lesion. Multiple gallstones identified. No wall thickening or surrounding fluid. Common bile duct is within normal limits. Spleen is within normal limits. No hydr onephrosis or shadowing renal calculi. No definite solid renal mass. The visualized upper IVC is with in normal limits. No abdominal aortic aneurysm. Ectasia of the proximal abdominal aorta measuring up to 2.5 cm. Urinary bladder is within normal limits. Bilateral ureteral jets identified. IMPRESSION: 1. Ill-defined ovoid hypoechoic lesion near the uncinate process the pancreas. May represent a lymph node versus other etiologies. Recommend further evaluation with CT abdomen. 2. Cholelithiasis without evidence for acute cholecystitis. 3. Ectasia of the proximal abdominal aorta measuring up to 2.5 cm. [facility], , 08/06/2024 9:26 AM
== END | disposition home or self-care (01) ==
LOC: RADUSWWP 08:00
PROVIDERS: ATTEND Family Medicine
DX: K80.20 Calculus of gallbladder without cholecystitis without obstruction (principal); I77.811 Abdominal aortic ectasia; K86.89 Other specified diseases of pancreas
CPT/HCPCS: 76700; 76857

== ENCOUNTER → 2024-08-26 | Outpatient (CLI) | payer MEDICARE ==
--- NOTE | 2024-08-26 13:33 | CT ---
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 Abnormal findings on US TECHNIQUE: Performed with Oral Contrast and with IV Contrast, patient injected with 100 ml mL of Isovue 300. CT DLP: [address] CTDI: mGy Automated exposure control for dose reduction was used. FINDINGS: The lung bases are clear. There is vicarious excretion of contrast in the gallbladder and there are small filling defects sugge sting small gallstones. There is no biliary ductal dilatation. There is no focal mass or organomegaly involving the liver, pancreas, spleen or adrenal glands. There is no solid renal mass or hydronephrosis and there is homogeneous contrast enhancement of the r enal parenchyma. The caliber the abdominal aorta is normal is no retroperitoneal adenopathy or hemorrhage. The bowel loops are normal in caliber and there is no evidence of dilatation or obstruction. No infla mmatory changes are identified in the bowel wall or mesentery. There is no free intraperitoneal air or fluid. No pelvic mass, free fluid, abscess or adenopathy. The osseous structures and soft tissues are intact. There is multilevel [id number] degenerative disc disease in the lumbar spine. IMPRESSION: 1 probable tiny gallstones. 2. Lumbar spine degenerative disc disease. [facility], , 08/26/2024 1:31 PM
== END | disposition home or self-care (01) ==
LOC: RADCTMAIN 11:04
PROVIDERS: ATTEND Family Medicine
DX: D49.0 Neoplasm of unspecified behavior of digestive system (principal); M51.369 Other intervertebral disc degeneration, lumbar region without mention of lumbar back pain or lower extremity pain
CPT/HCPCS: 74178; Q9967

== ENCOUNTER → 2024-09-11 | Outpatient (CLI) | payer MEDICARE ==
--- NOTE | 2024-09-27 03:04 | EM ---
EVENT MONITOR FOURTEEN-DAY EVENT MONITOR: All available rhythm strips were reviewed. Rhythms indicate a sinus rhythm and sinus tachycardia. No other abnormal rhythms were noted and there were no significant abnormality only patient triggered the rhythm strip. This is an uneventful 14- day event monitor. MMODL / IJN: [id number] /
== END | disposition home or self-care (01) ==
LOC: RADECHMAIN 13:32
PROVIDERS: ATTEND Family Medicine
DX: R00.1 Bradycardia, unspecified (principal); R00.0 Tachycardia, unspecified
CPT/HCPCS: 93270

== ENCOUNTER → 2024-11-24 | Outpatient (CLI) | payer MEDICARE ==
[2024-11-24 21:33] LABS: NT-Pro-B-Type Natriuretic Pept 587 pg/mL (0-125)
[2024-11-24 21:42] LABS: Cholesterol 229.00 mg/dL (0.00-200.00); HDL Cholesterol 68.80 mg/dL (40.00-60.00); LDL Cholesterol,Calculated 134.4 mg/dL (0.0-131.0); Triglycerides 129.00 mg/dL (0.00-149.00); VLDL Calculation 25.80 mg/dL (5.00-40.00)
== END | disposition home or self-care (01) ==
LOC: LABWHC1 15:30
PROVIDERS: ATTEND Student in an Organized Health Care Education/Training Program
DX: I50.9 Heart failure, unspecified (principal); E11.9 Type 2 diabetes mellitus without complications; E78.5 Hyperlipidemia, unspecified; E03.9 Hypothyroidism, unspecified
CPT/HCPCS: 36415; 80061; 83036; 83880; 84443